=== PATIENT | male | born 1945 | race Caucasian/White ===

== ENCOUNTER 2021-01-15 07:38 | Outpatient (CLI) | payer MEDICARE, SELFPAY ==
--- NOTE | ~2021-01-15 | CT_ITS ---
EXAMINATION: CT abdomen w con INDICATION: Painless jaundice TECHNIQUE: Computed tomographic images of the abdomen were obtained after the administration of 100 c c of Omnipaque 350 intravenous contrast. The dose-length product (DLP) was 386.40 mGy-cm. Automated e xposure control and iterative reconstruction technique were employed. COMPARISON: 12/19/2009 FINDINGS: Minimal dependent atelectasis is present in the lung bases. The heart size is normal. There is an approximately 5.8 x 2.9 cm ill-defined, cystic and solid mass of the head of the pancreas whic h causes severe intrahepatic and extrahepatic biliary dilatation as well as distention of the gallbla dder. The mass abuts the superior mesenteric artery and vein and the left renal vein. There is atroph y of the body and tail of the pancreas with dilation of the pancreatic duct. No focal liver lesion is identified. The spleen and adrenal glands are normal. The kidneys are unremarkable. No pathologicall y enlarged abdominal nodes are identified. There is no free intraperitoneal gas or evidence of bowel obstruction. There is severe lumbar spondylosis. IMPRESSION: 1. Ill-defined mass of the pancreas causing intrahepatic and extrahepatic biliary dilatation as well as gallbladder distention, consistent with malignancy, likely adenocarcinoma. These findings were discussed with Dr. Cyril Degroot MD at 1035 hours on 01/15/2021 10:37 CDT . Reviewed, dictated and finalized at location A. IMPRESSION: 1. Ill-defined mass of the pancreas causing intrahepatic and extrahepatic bilia ry dilatation as well as gallbladder distention, consistent with malignancy, li maria elena adenocarcinoma. These findings were discussed with Dr. Cyril Degroot MD at 1035 hours on 01/15/2021 10:37 CDT.
[2021-01-15 13:16] LABS: Estimated Glomerular Filt Rate > 60
== END 2021-01-15 07:39 | disposition home or self-care (01) ==
PROVIDERS: PCP Family Medicine Adolescent Medicine; Visit Provider Family Medicine Adolescent Medicine
DX: R17 Unspecified jaundice (principal); K86.9 Disease of pancreas, unspecified
CPT/HCPCS: 74160; Q9967

== ENCOUNTER 2021-04-21 20:40 | Emergency (ER) | payer MEDICARE, SELFPAY ==
--- NOTE | ~2021-04-21 | XR_ITS ---
XR chest 1V portable DATE: 04/21/2021 22:41 INDICATION: Cough after starting chemotherapy. Pancreatic cancer. TECHNIQUE: Portable upright AP chest on 04/21/2021 at 2233 hours COMPARISON: 02/16/2019 CT chest 04/03/2016 2 view chest FINDINGS: There is chronic mild elevation of left diaphragm. There is left basilar atelectasis. The l ungs otherwise appear clear. Right Port-A-Cath catheter tip overlies the superior vena cava. Heart size appears normal. No hilar o r mediastinal enlargement. No pleural effusion or pneumothorax. IMPRESSION: Chronic mild elevation left diaphragm Left basilar atelectasis Right Port-A-Cath Reviewed, dictated and finalized at location A.
[2021-04-21 20:47] VITALS: BP 151/78; PULSE 106; RESP 20; TEMP 37.6; O2SAT 97
[2021-04-21 21:05] LABS: Basophils Percent Auto 0.2 % (0.2-1.2); Eosinophils Absolute Auto 0.1 K/mm3 (0-0.3); Eosinophils Percent Auto 1.1 % (0-4.4); Hematocrit 34.3 % (42.0-52.0); Hemoglobin 11.8 g/dL (14.0-18.0); Immature Granulocyte Absolute 0.04 K/mm3 (0.00-0.031); Immature Granulocyte Percent A 0.6 % (0-0.5); Lymphocytes Absolute Auto 0.78 K/mm3 (0.9-3.2); Mean Corpuscular HGB Conc 34.4 g/dl (32-36); Mean Corpuscular Hemoglobin 33.2 pg (26-34); Mean Corpuscular Volume 96.6 fl (80-100); Mean Platelet Volume 11.7 fl (7.4-10.4); Monocytes Absolute Auto 0.1 K/mm3 (0.1-0.6); Monocytes Percent Auto 0.9 % (2.6-8.5); Neutrophils Absolute Auto 5.5 K/mm3 (1.3-6.7); Neutrophils Percent Auto 85.2 % (45.5-73.1); Platelet Count Result 175 k/mm3 (150-375); Red Blood Count 3.55 M/mm3 (4.6-6.20); White Blood Count 6.5 K/mm3 (4.5-10.0)
[2021-04-21 21:15] LABS: Alanine Aminotransferase 64 U/L (4-50); Albumin Level 3.9 g/dL (3.5-5.1); Alkaline Phosphatase 48 U/L (38-126); Anion Gap 9 mmol/L (8-16); Aspartate Amino Transferase 62 U/L (17-59); Bilirubin,Total 0.5 mg/dL (0.2-1.3); Blood Urea Nitrogen 16 mg/dL (9-20); Calcium 8.8 mg/dL (8.4-10.2); Carbon Dioxide 24 mmol/L (22-30); Chloride 99 mmol/L (98-107); Estimated Glomerular Filt Rate > 60; Glucose 173 mg/dL (65-110); Potassium 4.1 mmol/L (3.4-5.0); Sodium 132 mmol/L (137-145)
[2021-04-21 21:16] LABS: Lactic Acid Reflex 1.5 mmol/L (0.7-2.1)
[2021-04-21 22:30] VITALS: BP 121/77; PULSE 106; RESP 16; TEMP 37.3; O2SAT 95
--- NOTE | 2021-04-21 22:45 | ED.FEVER ---
HPI - Fever General Chief Complaint: Fever Stated Complaint: fever, cancer pt Time Seen by Provider: 04/21/21 22:39 Source: patient Mode of arrival: ambulatory Limitations: no limitations History of Present Illness HPI Narrative: Patient is a 75-year-old male complaining of fever earlier this afternoon and has now resolved. Patient denies taking any Tylenol Motrin to reduce his fever. Patient afebrile upon arrival. Patient denies any headache, chest pain, shortness of breath, cough, congestion, abdominal pain, nausea, vomiting, diarrhea, or urinary symptoms. Patient states that I feel great . Patient does states that he has some cough but that is nothing new was told it was a side effect from his chemo drug. Patient currently is on chemotherapy due to pancreatic CA. Related Data Home Medications Medication Instructions Recorded Confirmed acetaminophen 500 mg tablet 500 mg PO Q6H PRN 06/20/20 04/10/21 apixaban 5 mg tablet 5 mg PO BID 06/20/20 04/10/21 nebivolol 10 mg tablet 10 mg PO DAILY 06/20/20 04/10/21 pravastatin 40 mg tablet 40 mg PO DAILY 06/20/20 04/10/21 tamsulosin 0.4 mg capsule 0.4 mg PO DAILY 06/20/20 04/10/21 carbidopa 25 mg-levodopa 100 mg 1 tablet PO tablet 04/10/21 04/10/21 tablet finasteride 5 mg tablet 5 mg PO DAILY tablet 04/10/21 04/10/21 Allergies Allergy/AdvReac Type Severity Reaction Status Date / Time No Known Allergies Allergy Verified 04/10/21 14:28 Review of Systems Review of Systems: All systems reviewed & are unremarkable except as noted in HPI and below Constitutional: Constitutional: Denies body ache(s), Denies chills, Denies excessive sweating, Denies fatigue, Denies headache(s), Denies lethargy, Denies malaise, Denies weakness and Denies weight loss Eyes: Eyes: Denies blurry vision, Denies change in vision and Denies loss of vision ENT: Denies dizziness, Denies ear discharge, Denies headache(s), Denies lip swelling, Denies epistaxis, Denies nasal congestion, Denies neck pain, Denies throat swelling and Denies tongue swelling Cardiovascular: Cardiovascular: Denies chest pain, Denies chest pain at rest, Denies chest pain with activity, Denies diaphoresis, Denies rapid heart rate, Denies edema, Denies irregular heart rhythm, Denies lightheadedness, Denies palpitations, Denies dyspnea and Denies dyspnea on exertion Respiratory: Respiratory: Denies chest congestion, Denies cough, Denies hemoptysis, Denies dyspnea and Denies dyspnea on exertion Gastrointestinal: Gastrointestinal: Denies abdominal pain, Denies melena, Denies hematochezia, Denies diarrhea, Denies nausea, Denies vomiting and Denies hematemesis Musculoskeletal: Musculoskeletal: Denies abnormal gait, Denies deformity, Denies joint swelling, Denies limited range of motion, Denies neck pain and Denies numbness Neurologic: Denies Abnormal speech present, Denies abnormal gait, Denies confusion, Denies dizziness, Denies headache(s), Denies focal weakness, Denies loss of vision, Denies numbness, Denies Other visual disturbances, Denies Sensory deficit (Neuro) and Denies weakness Psychiatric: Psychiatric: Denies confusion, Denies depression, Denies auditory hallucinations, Denies homicidal ideation and Denies suicidal ideation Endocrine: Endocrine: Denies cold intolerance, Denies excessive sweating, Denies fatigue, Denies heat intolerance and Denies palpitations Hematologic/Lymphatic: Hematologic/Lymphatic: Denies easy bleeding and Denies easy bruising Allergic/Immunologic: Allergic/Immunologic: Denies lip swelling, Denies throat swelling and Denies tongue swelling PMFSH Past Medical History Medical History Arthritis COPD (chronic obstructive pulmonary disease) Diastolic dysfunction Erectile dysfunction H/O: CVA (cerebrovascular accident) HLD (hyperlipidemia) HTN (hypertension) Lung nodule LISANDRA on CPAP Osteoarthritis Pelvic fracture Rhinitis Surgical History Surgical H
[2021-04-21 23:14] LABS: Add Urine Microscopic? NO; Appearance Urine Clear (Clear); Bilirubin Urine Negative (Negative); Blood Urine Negative (Negative); Color Urine Yellow (Yellow); Glucose Urine UA Negative (Negative); Ketones Urine Negative (Negative); Leukocyte Esterase Ur Negative LEU/UL (Negative); Nitrate Urine Negative (Negative); Protein Urine Negative (Negative); Specific Grav Ur 1.023 (1.001-1.035); Urobilinogen Urine Negative mg/dL (<2.0)
[2021-04-21] MEDS: LACTATED RINGERS 1,000 ML 999 ML IV CONT (23:24)
[2021-04-21 23:25] VITALS: BP 109/71; PULSE 101; RESP 18; O2SAT 95
--- NOTE | 2021-04-22 00:08 | PC.NURSE ---
Pt to receive 500 ml of Lactated Ringers per ERP VRBO.
[2021-04-22 00:11] VITALS: BP 127/67; PULSE 89; RESP 16; O2SAT 95
[2021-04-22 01:32] VITALS: BP 126/73; PULSE 98; RESP 18; O2SAT 96
== END 2021-04-22 01:26 | disposition home or self-care (01) ==
PROVIDERS: Emergency Medicine; Emergency Provider Emergency Medicine; PCP Family Medicine Adolescent Medicine
DX: R50.9 Fever, unspecified (principal); C25.9 Malignant neoplasm of pancreas, unspecified; J44.9 Chronic obstructive pulmonary disease, unspecified; E78.5 Hyperlipidemia, unspecified; I10 Essential (primary) hypertension; G47.33 Obstructive sleep apnea (adult) (pediatric); M19.90 Unspecified osteoarthritis, unspecified site; Z86.73 Personal history of transient ischemic attack (TIA), and cerebral infarction without residual deficits; Z95.5 Presence of coronary angioplasty implant and graft; Z90.79 Acquired absence of other genital organ(s); Z79.01 Long term (current) use of anticoagulants; Z79.899 Other long term (current) drug therapy
CPT/HCPCS: 36415; 71045; 80053; 81003; 83605; 85025; 87040; 96361; 96365; 99284; J0692; J7120

== ENCOUNTER 2021-04-27 17:27 | Emergency (ER) | payer MEDICARE, SELFPAY ==
--- NOTE | ~2021-04-27 | XR_ITS ---
EXAMINATION: XR chest 2V DATE: 04/27/2021 18:09 INDICATION: Cough. TECHNIQUE: Frontal and lateral views of the chest were obtained. COMPARISON: Chest single view 04/13/2021, CT abdomen 01/15/2021 FINDINGS: There is mild atelectasis in left lower lung zone. No pleural effusion or pneumothorax. The heart size is normal. There is an interatrial closure device in the heart. There is a right internal jugular port with tip in superior vena cava. An internal biliary stent is noted. IMPRESSION: 1. Mild atelectasis in left lower lung zone. Reviewed, dictated and finalized at location A.
--- NOTE | 2021-04-27 17:33 | ED.URI ---
HPI - URI/Sore Throat General Chief Complaint: Upper Respiratory Infection Stated Complaint: cough Time Seen by Provider: 04/27/21 17:34 Source: patient Limitations: no limitations History of Present Illness HPI Narrative: Maurizio Bear is 75 yo male with a PMH of pancreatic cancer, HTN, high cholesterol, chronic anticoagulation, Parkinson's disease, COPD, who [facility] with complaint of a cough the last 3 weeks . He was seen last week in the ER same and having fever and was had a chest x-ray. Chest x-ray negative started on Augmentin last week cough has not gone away. Oncologist told patient that cough is from his chemotherapy states his son Jhonatan cough worsened as the day progresses Related Data Home Medications Medication Instructions Recorded Confirmed acetaminophen 500 mg tablet 500 mg PO Q6H PRN 06/20/20 04/10/21 apixaban 5 mg tablet 5 mg PO BID 06/20/20 04/10/21 nebivolol 10 mg tablet 10 mg PO DAILY 06/20/20 04/10/21 pravastatin 40 mg tablet 40 mg PO DAILY 06/20/20 04/10/21 tamsulosin 0.4 mg capsule 0.4 mg PO DAILY 06/20/20 04/10/21 carbidopa 25 mg-levodopa 100 mg 1 tablet PO tablet 04/10/21 04/10/21 tablet finasteride 5 mg tablet 5 mg PO DAILY tablet 04/10/21 04/10/21 Allergies Allergy/AdvReac Type Severity Reaction Status Date / Time No Known Allergies Allergy Verified 04/10/21 14:28 Review of Systems Review of Systems: CONSTITUTIONAL: Has fever, chills, sweats. EYES: Denies visual changes, redness, discharge. ENT: Denies rhinorrhea, congestion, sore throat, otalgia. CARDIOVASCULAR: Denies chest pain, palpitations, edema. RESPIRATORY: Denies dyspnea, wheezing, has cough GASTROINTESTINAL: Denies abdominal pain, nausea, vomiting, diarrhea. GENITOURINARY: Denies dysuria, hematuria, abnormal discharge SKIN: Denies rash or itching. NEUROLOGIC: Denies numbness, or focal weakness. PSYCHIATRIC: Denies anxiety or depression. [facility] Past Medical History Medical History Arthritis COPD (chronic obstructive pulmonary disease) Diastolic dysfunction Erectile dysfunction H/O: CVA (cerebrovascular accident) HLD (hyperlipidemia) HTN (hypertension) Lung nodule LISANDRA on CPAP Osteoarthritis Pancreatic cancer Pelvic fracture Rhinitis Surgical History Surgical History H/O heart artery stent H/O inguinal hernia repair H/O prostatectomy History of appendectomy History of cardiac cath History of coronary angioplasty Family History Family History Father Acute myocardial infarction, Onset Age: 59 Grandparent Cerebrovascular accident Mother Family history of malignant neoplasm of breast in first degree relative, Onset Age: 65 Social History Social History Smoking status: Never smoker Alcohol intake: current Comments At time of signature, I agree with nursing past medical, surgical, social and family history. There is no relevant family history pertinent to the presenting complaint. Exam Narrative: GENERAL: This is a elderly well-developed patient, in moderate distress. Patient is febrile, unable to stand alone, low-grade fever fever HEAD: normocephalic, atraumatic. EYESSclera clear/white. Vision is grossly intact. EARS: External ears normal, auditory canals clear and without drainage, TMs normal without perforation. Hearing grossly intact. NOSE: External nose normal without nasal discharge, nares without redness, no rhinorrhea. THROAT: Mucous membranes moist, he has poorly controlled dry cough NECK: Neck supple, non-tender CARDIOVASCULAR: Regular rate and rhythm without murmurs, gallops, or rubs. RESPIRATORY: Coarse to auscultation. Respiratory rate rapid breath sounds equal bilaterally. No wheezes, rales, or rhonchi. [place]
[2021-04-27 17:46] VITALS: BP 145/93; PULSE 104; RESP 22; TEMP 37.8; O2SAT 97
[2021-04-28 21:00] LABS: SARS-CoV-2 RNA PCR Negative
== END 2021-04-27 18:48 | disposition home or self-care (01) ==
PROVIDERS: Emergency Provider Nurse Practitioner; PCP Family Medicine Adolescent Medicine
DX: R05 Cough (principal); C25.9 Malignant neoplasm of pancreas, unspecified; Z20.828 Contact with and (suspected) exposure to other viral communicable diseases; I10 Essential (primary) hypertension; G20 Parkinson's disease; J44.9 Chronic obstructive pulmonary disease, unspecified; Z86.73 Personal history of transient ischemic attack (TIA), and cerebral infarction without residual deficits; Z79.01 Long term (current) use of anticoagulants
CPT/HCPCS: 71046; 81003; 87426; 99213; C9803; G0463; U0003; U0005

== ENCOUNTER 2021-06-23 20:22 | Inpatient (IN) | payer MEDICARE, SELFPAY ==
[2021-06-23] VITALS (7 sets, daily range): BP systolic 110–140; BP diastolic 64–76; PULSE 109–139; RESP 22–33; TEMP 38; O2SAT 90–100
--- NOTE | ~2021-06-23 | US_ITS ---
EXAMINATION: US abdomen limited EXAM DATE: 06/24/2021 11:06 INDICATION: Pancreatic cancer, inc lft's, Elevated liver function tests. TECHNIQUE: Multiple grayscale and Doppler images of the abdomen right upper quadrant were obtained (b y a technologist who performed the scan) and subsequently reviewed. There is no prior study for trino barrera. FINDINGS: The pancreatic head and body are normal in appearance. The pancreatic tail is not visualized. The l iver has normal echogenicity and contour. There are no focal liver lesions identified. There is no evidence of intrahepatic biliary duct dilation. Portal venous flow was seen in the hepatopedal, nor mal direction and has normal Doppler waveform. No right-sided hydronephrosis. Common bile duct measures 8 mm, which is normal for age. The gallbladder is moderately distended with mildly thickened wall measuring 3-4 mm. No cholelithiasis. No pericholecystic fluid. Technologist jess rforming exam reports patient did not demonstrate sonographic Aguero's sign. Please note that this s ign is less reliable in patients who have received pain medication. IMPRESSION: 1. Moderately distended gallbladder with mild wall thickening, could be reactive given absence of ch olelithiasis and sonographic Aguero sign. Reviewed, dictated and finalized at location A. IMPRESSION: 1. Moderately distended gallbladder with mild wall thickening, could be reacti ve given absence of cholelithiasis and sonographic Aguero sign.
--- NOTE | ~2021-06-23 | CT_ITS ---
EXAMINATION: CT chest abdomen pelvis wo con DATE: 06/26/2021 05:29 INDICATION: Escherichia coli sepsis TECHNIQUE: Transaxial computed tomographic images of the chest, abdomen, and pelvis were obtained. Th e dose-length product (DLP) was 1003.34 mGy-cm. Automated exposure control and iterative reconstructi on technique were employed. COMPARISON: 01/15/2021 FINDINGS: CHEST CT: There are small pleural effusions. Smooth interlobular septal thickening is noted with some minimal g roundglass opacities. There are small, stable bilateral pulmonary nodules. Clustered nodules are pres ent in the right lower lobe which may be infectious or inflammatory. There is dependent atelectasis. No pneumothorax is identified. A right internal jugular Port-A-Cath ends with its tip in the distal s uperior vena cava. An ASD closure device is noted. There are coronary artery stents. The heart size i s normal. ABDOMEN/PELVIS CT: There has been interval placement a stent in the common bile duct. The previously described irregular mass in the head of the pancreas is not well demonstrated in the absence of intravenous contrast. Th ere is atrophy of the pancreas with enlargement of the pancreatic duct. A small amount of pneumobilia is present, most likely related to stent insertion. Within the limitations of noncontrast examinatio n, the liver, spleen, gallbladder, and adrenal glands are normal. The kidneys are unremarkable. There is calcified atherosclerosis of the aorta and many of the other arteries. No pathologically enlarged abdominal or pelvic lymph nodes are identified. There is no free intraperitoneal gas or evidence of bowel obstruction. The bladder is decompressed by Tobar catheter. Wall thickening of the urinary blad jae may be due to decompression. There are healed fractures of the bilateral inferior pubic rami. The re is severe lumbar spondylosis. IMPRESSION: 1. Small pleural effusions with atelectasis of the lower lobes. 2. Mild pulmonary edema. 3. Interval placement of a stent in the common bile duct, pancreatic atrophy, ill-defined mass in the head of the pancreas, and pancreatic ductal dilatation, all consistent with treatment for, and findi ngs of, pancreatic cancer. Reviewed, dictated and finalized at location B. IMPRESSION: 1. Small pleural effusions with atelectasis of the lower lobes. 2. Mild pulmonary edema. 3. Interval placement of a stent in the common bile duct, pancreatic atrophy, i ll-defined mass in the head of the pancreas, and pancreatic ductal dilatation, all consistent with treatment for, and findings of, pancreatic cancer.
--- NOTE | ~2021-06-23 | XR_ITS ---
XR chest 2V 06/23/2021 20:51 Indication: Shortness of breath. COPD. Hypertension. Procedure: AP and lateral views of the chest Comparison: 04/27/2021 Findings: There is bilateral airspace disease, left greater than right. Elevated left diaphragm. Port acatheter tip in the SVC. No pneumothorax. Impression: 1: Developing bilateral airspace disease, left greater than right, compatible with pneumonia. Reviewed, dictated and finalized at location A. Impression: 1: Developing bilateral airspace disease, left greater than right, compatible w ith pneumonia.
--- NOTE | ~2021-06-23 | XR_ITS ---
EXAMINATION: XR chest 1V portable INDICATION: Congestive heart failure and cough TECHNIQUE: Portable AP chest at 0835 hours COMPARISON: 06/24/2021 FINDINGS: A right internal jugular Port-A-Cath ends with its tip in the distal superior vena cava. Pa tchy bilateral opacities persist but have improved. Atelectasis of the lung bases has also improved. The cardiomediastinal silhouette is normal. There is no pleural effusion or pneumothorax IMPRESSION: 1. Improving bilateral opacities, consistent with resolving pneumonia and/or pulmonary edema. 2. Decreased left basilar atelectasis. Reviewed, dictated and finalized at location B. IMPRESSION: 1. Improving bilateral opacities, consistent with resolving pneumonia and/or pu lmonary edema. 2. Decreased left basilar atelectasis.
--- NOTE | ~2021-06-23 | XR_ITS ---
EXAMINATION: XR chest 1V portable EXAM DATE: 06/24/2021 00:41 INDICATION: Shortness of breath. TECHNIQUE: Portable AP frontal chest x-ray was obtained. Comparison is made to prior examination from 06/23. FINDINGS: Progression of now moderate amount of right-sided perihilar pneumonia or edema and less star unt of left basilar more linear airspace disease at least partly atelectasis. Cardiomediastinal silho uette is normal. There is no pneumothorax suspected. There are no pleural effusions. Right-sided inje ctable portacatheter. Unremarkable upper abdominal bowel gas pattern. IMPRESSION: 1. Development of moderate right perihilar pneumonia or edema. 2. Less left basilar airspace disease. Reviewed, dictated and finalized at location A.
--- NOTE | ~2021-06-23 | US_ITS ---
EXAMINATION: US venous doppler LE EXAM DATE: 06/24/2021 11:05 INDICATION: Lower extremity edema bilaterally. TECHNIQUE: Multiple grayscale, color flow and Doppler images of the lower extremity deep venous syste ms bilaterally were obtained and reviewed. There is no prior study for comparison. FINDINGS: Right side: The right common femoral, femoral and profunda veins demonstrate normal color flow, respi ratory variation, augmentation and compressibility. Compressibility, color flow confirmed within the right popliteal, posterior tibial, peroneal, and greater saphenous veins. Left side: The left common femoral, femoral and profunda veins demonstrate normal color flow, respira tory variation, augmentation and compressibility. Compressibility, color flow confirmed within the l eft popliteal, posterior tibial, peroneal, and greater saphenous veins. IMPRESSION: 1. No lower extremity deep venous thrombosis bilaterally. Reviewed, dictated and finalized at location A.
--- NOTE | 2021-06-23 20:30 | ECG_ITS ---
Measurements Intervals [place] Rate: 111 P: 28 CT: 151 QRS: -2 QRSD: 90 T: 17 QT: 306 QTc: 417 Interpretive Statements SINUS TACHYCARDIA ATRIAL PREMATURE COMPLEXES BASELINE ARTIFACT- I, II, III, AVR, AVF, V3-V6 ABNORMAL ECG Electronically Signed On 06-24-2021 7:31:51 CDT by Nayan Hansen D.O.
[2021-06-23 20:43] LABS: Basophils Percent Auto 0.5 % (0.2-1.2); Hematocrit 27.2 % (42.0-52.0); Hemoglobin 8.9 g/dL (14.0-18.0); Immature Granulocyte Absolute 0.12 K/mm3 (0.00-0.031); Immature Granulocyte Percent A 6.3 % (0-0.5); Lymphocytes Absolute Auto 0.63 K/mm3 (0.9-3.2); Lymphocytes Percent Auto 32.8 % (18.3-44.2); Mean Corpuscular HGB Conc 32.7 g/dl (32-36); Mean Corpuscular Hemoglobin 31.4 pg (26-34); Mean Corpuscular Volume 96.1 fl (80-100); Mean Platelet Volume 11.1 fl (7.4-10.4); Monocytes Absolute Auto 0.1 K/mm3 (0.1-0.6); Monocytes Percent Auto 3.1 % (2.6-8.5); Neutrophils Absolute Auto 1.1 K/mm3 (1.3-6.7); Neutrophils Percent Auto 56.3 % (45.5-73.1); Nucleated Red Blood Cells Absolute Auto 0.1 K/mm3 (0.0-0.012); Nucleated Red Blood Cells Perc 3.6 % (0.0-0.2); Platelet Count Result 227 k/mm3 (150-375); Red Blood Count 2.83 M/mm3 (4.6-6.20); Red Cell Distribution Width 17.7 % (11.5-14.5)
[2021-06-23 20:48] LABS: White Blood Count 1.9 K/mm3 (4.5-10.0)
[2021-06-23 20:55] LABS: Anion Gap 9 mmol/L (8-16); Blood Urea Nitrogen 11 mg/dL (9-20); Calcium 8.4 mg/dL (8.4-10.2); Carbon Dioxide 24 mmol/L (22-30); Chloride 102 mmol/L (98-107); Estimated CRCL calculation 104 ml/min; Estimated Glomerular Filt Rate > 60; Glucose 161 mg/dL (65-110); Potassium 3.8 mmol/L (3.4-5.0); Sodium 135 mmol/L (137-145)
[2021-06-23 21:15] LABS: Lactic Acid Reflex 2.3 mmol/L (0.7-2.1)
[2021-06-23 21:18] LABS: Alanine Aminotransferase 101 U/L (4-50); Albumin Level 3.3 g/dL (3.5-5.1); Alkaline Phosphatase 317 U/L (38-126); Aspartate Amino Transferase 190 U/L (17-59); Bilirubin,Total 1.3 mg/dL (0.2-1.3); Lipase 11 U/L (23-300)
--- NOTE | 2021-06-23 21:58 | PM.IMHP ---
H&P: HPI History of Present Illness Date/Time: 06/23/21 21:58 Chief Complaint: Generalized weakness. Narrative: This is a 75-year-old man with past medical history significant for Parkinson's disease, type 2 diabetes mellitus, COPD/emphysema, diastolic heart failure, stroke, dyslipidemia, obstructive sleep apnea on CPAP at nighttime, who was just recently diagnosed with pancreatic cancer he has been undergoing chemotherapy last was a roughly 10 days ago after this time around he has been having nausea, vomiting ,decreased appetite, generalized weakness, chills, has not been able to take his Parkinson's medication and has been feeling very stiff. Preliminary workup was significant for a chest x-ray with lung infiltrates chemistry panel showed elevated liver enzymes. Decision was made to admit the patient for further management treatment and evaluation. Review of Systems Review of Systems: Poor appetite nausea vomiting generalized weakness cough shortness of breath Constitutional: Constitutional: Reports chills, Reports fatigue, Denies fever(s), Reports lethargy, Reports malaise, Denies night sweats, Reports poor appetite and Reports weakness Eyes: Eyes: Denies change in vision ENT: Denies dysphagia, Denies vertigo, Denies dizziness, Denies nasal congestion, Denies nasal discharge, Denies nasal obstruction and Denies odynophagia Cardiovascular: Cardiovascular: Denies irregular heart rhythm, Denies lightheadedness, Denies radiating jaw, neck or arm pain, Denies palpitations, Denies dyspnea, Denies dyspnea on exertion and Denies orthopnea Respiratory: Respiratory: Reports cough and Reports dyspnea Gastrointestinal: Gastrointestinal: Denies abdominal pain, Reports diarrhea, Reports nausea and Reports vomiting Genitourinary: Genitourinary: Denies dysuria and Denies flank pain Musculoskeletal: Musculoskeletal: Denies arthralgias and Denies joint swelling Integumentary/Breasts: Skin/Breast: Denies rash Neurologic: Denies focal weakness and Denies Sensory deficit (Neuro) Comments: Stiffness Psychiatric: Psychiatric: Reports no additional psychiatric complaints and Reports as per HPI Endocrine: Endocrine: Reports no additional endocrine complaints and Reports as per HPI Hematologic/Lymphatic: Hematologic/Lymphatic: Reports no additional hematologic/lymphatic complaints and Reports as per HPI Allergic/Immunologic: Allergic/Immunologic: Reports no additional allergic/immunologic complaints and Reports as per HPI [facility] Past Medical History Medical History (Updated 06/24/21 @ 02:56 by Marty Lin MD) Arthritis COPD (chronic obstructive pulmonary disease) Diastolic dysfunction Erectile dysfunction H/O: CVA (cerebrovascular accident) HLD (hyperlipidemia) HTN (hypertension) Lung nodule LISANDRA on CPAP Osteoarthritis Pancreatic cancer Pelvic fracture Rhinitis Surgical History Surgical History H/O heart artery stent H/O inguinal hernia repair H/O prostatectomy History of appendectomy History of cardiac cath History of coronary angioplasty Family History Family History Father Acute myocardial infarction, Onset Age: 59 Grandparent Cerebrovascular accident Mother Family history of malignant neoplasm of breast in first degree relative, Onset Age: 65 Social History Social History Smoking status: Former smoker Alcohol intake: never Substance use: never Substance use type: does not use Spiritual care concerns: No Meds Home Medications and Allergies Home Medications Medication Instructions Recorded Confirmed Type apixaban 5 mg tablet 5 mg PO BID 06/20/20 06/24/21 History nebivolol 10 mg tablet 10 mg PO DAILY 06/20/20 06/24/21 History pravastatin 40 mg tablet 40 mg PO DAILY 06/20/20 06/24/21 History tamsulosin 0.4 m
[2021-06-23] MEDS: ONDANSETRON INJ 4 MG/2 ML VIAL IV PUSH (22:09)
--- NOTE | 2021-06-23 22:16 | ED.SOB ---
HPI - SOB/Dyspnea General Chief Complaint: Shortness of Breath/Dyspnea Stated Complaint: dsypnea, N/V Time Seen by Provider: 06/23/21 20:42 Source: patient, family and EMS Mode of arrival: EMS Limitations: physical limitation and clinical condition History of Present Illness HPI Narrative: 75-year-old male History of COPD, Parkinson's type symptoms and of pancreatic cancer which he is currently receiving chemo for through [facility] most recently 10 days ago Here because of shortness of breath He reports that he started getting more short of breath yesterday and increased today Not particularly associated with exertion or position and has no chest pain He has had a bit of a cough, was not aware that he had a fever EMS was called and noted him to have a low O2 sat of 88% which improved with oxygen Right before leaving he started getting nauseated and vomited quite a bit in the ambulance, no hematemesis reported Related Data Home Medications Medication Instructions Recorded Confirmed apixaban 5 mg tablet 5 mg PO BID 06/20/20 04/10/21 nebivolol 10 mg tablet 10 mg PO DAILY 06/20/20 04/10/21 pravastatin 40 mg tablet 40 mg PO DAILY 06/20/20 04/10/21 tamsulosin 0.4 mg capsule 0.4 mg PO DAILY 06/20/20 04/10/21 carbidopa 25 mg-levodopa 100 mg 1 tablet PO tablet 04/10/21 04/10/21 tablet finasteride 5 mg tablet 5 mg PO DAILY tablet 04/10/21 04/10/21 cholecalciferol (vitamin D3) 25 mcg PO DAILY 06/23/21 glucagon [Gvoke HypoPen 2-Pack] 1 mg SUBCUT ONCE PRN 06/23/21 insulin aspart U-100 [Novolog 20 unit SUBCUT TID 06/23/21 Flexpen U-100 Insulin] insulin degludec [Tresiba SUBCUT 06/23/21 FlexTouch U-100] ondansetron HCl 06/23/21 tadalafil mg 06/23/21 Allergies Allergy/AdvReac Type Severity Reaction Status Date / Time No Known Allergies Allergy Verified 06/23/21 20:28 Review of Systems Review of Systems: All systems reviewed & are unremarkable except as noted in HPI and below Constitutional: Constitutional: Reports no additional constitutional complaints, Reports chills, Reports fatigue, Denies fever(s), Denies headache(s) and Reports weakness Eyes: Eyes: Reports no additional eye complaints and Denies change in vision ENT: Denies headache(s) and Denies sore throat Cardiovascular: Cardiovascular: Denies chest pain and Denies dyspnea Respiratory: Respiratory: Reports chest congestion, Reports cough, Reports dyspnea and Reports wheezing Gastrointestinal: Gastrointestinal: Denies abdominal pain, Reports diarrhea, Reports nausea and Reports vomiting Genitourinary: Genitourinary: Denies dysuria and Denies urinary frequency Musculoskeletal: Musculoskeletal: Reports back pain, Reports myalgias, Denies deformity, Denies arthralgias, Denies joint swelling and Denies numbness Integumentary/Breasts: Skin/Breast: Denies rash and Denies wounds Neurologic: Denies headache(s), Denies focal weakness and Denies numbness Psychiatric: Psychiatric: Reports no additional psychiatric complaints Endocrine: Endocrine: Reports no additional endocrine complaints Hematologic/Lymphatic: Hematologic/Lymphatic: Reports no additional hematologic/lymphatic complaints Allergic/Immunologic: Allergic/Immunologic: Reports no additional allergic/immunologic complaints [facility] Past Medical History Medical History Arthritis COPD (chronic obstructive pulmonary disease) Diastolic dysfunction Erectile dysfunction H/O: CVA (cerebrovascular accident) HLD (hyperlipidemia) HTN (hypertension) Lung nodule LISANDRA on CPAP Osteoarthritis Pancreatic cancer Pelvic fracture Rhinitis Surgical History Surgical History H/O heart artery stent H/O inguinal hernia repair H/O prostatectomy History of appendectomy History of cardiac cath History of coronary angioplasty Family History Family History (Reviewed 06/23/21 @ 22:22 by Isaiah Carranza,
[2021-06-23] MEDS: LACTATED RINGERS 1,000 ML 999 ML IV CONT ×2 (22:29→22:31)
[2021-06-23] MEDS: ALBUTEROL SULFATE NEB 2.5 MG/0.5 ML INH 5 MG INHALATION (22:42)
[2021-06-24] VITALS (36 sets, daily range): BP systolic 90–134; BP diastolic 47–75; PULSE 77–134; RESP 18–48; TEMP 36–38.9; O2SAT 75–100; BMI 29.4
[2021-06-24 00:01] LABS: Reflex Lactic Acid Yes or No Add Lactic
--- NOTE | 2021-06-24 00:10 | ADMGEN ---
This patient, Maurizio Casey, was admitted to Medical Room 247-. Patient/family oriented to hospital policies and general routines including ID bracelet, bed and alarms, visiting hours, pain management, procedures, bathroom and other care routines, personal items, smoking policy, room service/diet, and visiting hours. Information on how to activate the Rapid Response Team has been discussed. Patient/Family are encouraged to report perceived risks to care and to ask questions if they do not understand what they are told or what they should do.
--- NOTE | 2021-06-24 00:20 | PC.NURSE ---
received patient from the ER via stretcher. Patient is Short of breath at rest, unable to speak and using accessory muscles. HR in the 130's, pt O2 sats in the 70's on 2L O2, respirations 40. Patients lungs sound very coarse. Rapid response called
--- NOTE | 2021-06-24 00:31 | ECG_ITS ---
Measurements Intervals [place] Rate: 130 P: 57 MS: 155 QRS: 6 QRSD: 90 T: 30 QT: 281 QTc: 413 Interpretive Statements SINUS TACHYCARDIA VENTRICULAR PREMATURE COMPLEX BORDERLINE ST ABNORMALITY- ANTEROLATERAL LEADS BASELINE ARTIFACT- II, III, AVL, V2-V6 ABNORMAL ECG Electronically Signed On 06-29-2021 20:23:01 CDT by Nayan Hansen D.O.
[2021-06-24 00:36] LABS: Alveolar/Arterial O2 Gradient 535.8 mmHg; Base Excess ABG -2.3 mEq/l (+/-2.0); Carboxyhemoglobin 0.3 % THb (0-2.0); Fractional Inspired Oxygen 95 %; HCO3 ABG 22.4 mEq/l (22.0-26.0); Methemoglobin ABG 0.2 %THb (0-1.5); Oxygen Saturation ABG 97.7 % (95.0-100.0); Oxyhemoglobin 95.9 % THb (90.0-100.0); PCO2 ABG 38.1 mmHg (35.0-45.0); PO2 FiO2 Ratio Arterial Blood 1.08 %; Reduced Hemoglobin 3.6 %THb (0-5.0); Total Hemoglobin 9.5 g/dL (12.0-18.0); pH ABG 7.388 (7.350-7.450)
[2021-06-24 00:37] LABS: Device NON-REBREATHER MASK; Modified Allen's Test Pass; Site Drawn LEFT RADIAL
[2021-06-24] MEDS: FUROSEMIDE INJ 40 MG/4 ML VIAL IV PUSH (00:41)
[2021-06-24] MEDS: MORPHINE SULFATE (*CRX) 2 MG/ML INJ IV PUSH (00:41)
[2021-06-24] MEDS: ACETAMINOPHEN 325 MG TABLET 650 MG PO (00:42)
[2021-06-24 01:15] LABS: Hematocrit 26.2 % (42.0-52.0); Hemoglobin 8.5 g/dL (14.0-18.0); Mean Corpuscular HGB Conc 32.4 g/dl (32-36); Mean Corpuscular Hemoglobin 30.9 pg (26-34); Mean Corpuscular Volume 95.3 fl (80-100); Mean Platelet Volume 11.2 fl (7.4-10.4); Platelet Count Result 236 k/mm3 (150-375); Red Blood Count 2.75 M/mm3 (4.6-6.20); Red Cell Distribution Width 17.7 % (11.5-14.5); White Blood Count 4.1 K/mm3 (4.5-10.0)
[2021-06-24 01:18] LABS: Alanine Aminotransferase 136 U/L (4-50); Albumin Level 3.1 g/dL (3.5-5.1); Alkaline Phosphatase 343 U/L (38-126); Anion Gap 9 mmol/L (8-16); Aspartate Amino Transferase 294 U/L (17-59); Bilirubin,Total 1.8 mg/dL (0.2-1.3); Blood Urea Nitrogen 12 mg/dL (9-20); Carbon Dioxide 25 mmol/L (22-30); Chloride 100 mmol/L (98-107); Estimated CRCL calculation 71 ml/min; Estimated Glomerular Filt Rate > 60; Glucose 229 mg/dL (65-110); Phosphorus 2.5 mg/dL (2.5-4.5); Potassium 3.5 mmol/L (3.4-5.0); Sodium 134 mmol/L (137-145)
[2021-06-24 01:19] LABS: Lactic Acid 3.3 mmol/L (0.7-2.1)
[2021-06-24 01:27] LABS: NT Pro B Type Natriuretic Pept 1170 pg/mL (5-100)
[2021-06-24] MEDS: methylPREDNISolone SOD SUCC 125 MG VIAL IV PUSH (03:18)
[2021-06-24 05:20] LABS: Basophils Percent Auto 0.5 % (0.2-1.2); Hematocrit 25.8 % (42.0-52.0); Hemoglobin 8.2 g/dL (14.0-18.0); Immature Granulocyte Absolute 0.05 K/mm3 (0.00-0.031); Immature Granulocyte Percent A 0.9 % (0-0.5); Lymphocytes Percent Auto 10.8 % (18.3-44.2); Mean Corpuscular HGB Conc 31.8 g/dl (32-36); Mean Corpuscular Hemoglobin 31.2 pg (26-34); Mean Corpuscular Volume 98.1 fl (80-100); Mean Platelet Volume 11.3 fl (7.4-10.4); Monocytes Absolute Auto 0.8 K/mm3 (0.1-0.6); Monocytes Percent Auto 14.5 % (2.6-8.5); Neutrophils Absolute Auto 4.1 K/mm3 (1.3-6.7); Neutrophils Percent Auto 73.3 % (45.5-73.1); Nucleated Red Blood Cells Absolute Auto 0.1 K/mm3 (0.0-0.012); Nucleated Red Blood Cells Perc 1.1 % (0.0-0.2); Platelet Count Result 220 k/mm3 (150-375); Red Blood Count 2.63 M/mm3 (4.6-6.20); Red Cell Distribution Width 17.9 % (11.5-14.5); White Blood Count 5.6 K/mm3 (4.5-10.0)
[2021-06-24 05:32] LABS: Alanine Aminotransferase 158 U/L (4-50); Alkaline Phosphatase 307 U/L (38-126); Anion Gap 8 mmol/L (8-16); Aspartate Amino Transferase 279 U/L (17-59); Bilirubin,Total 2.3 mg/dL (0.2-1.3); Blood Urea Nitrogen 14 mg/dL (9-20); Calcium 7.9 mg/dL (8.4-10.2); Carbon Dioxide 24 mmol/L (22-30); Chloride 99 mmol/L (98-107); Estimated CRCL calculation 63 ml/min; Estimated Glomerular Filt Rate > 60; Glucose 281 mg/dL (65-110); Sodium 131 mmol/L (137-145)
[2021-06-24 05:36] LABS: Lipase < 10 U/L (23-300)
[2021-06-24] MEDS: INSULIN ASPART (*BKC) 100 UNITS/ML SUB-Q ×2 (08:16→17:36)
[2021-06-24 08:30] LABS: Glucose Point of Care 252 mg/dl (65-105)
[2021-06-24 08:57] LABS: Glucose Point of Care 258 mg/dl (65-105)
[2021-06-24] MEDS: ALBUTEROL SULFATE NEB 2.5 MG/0.5 ML INH 5 MG INHALATION (09:26)
[2021-06-24] MEDS: IPRATROPIUM BR 0.02% INH SOLN 0.5 MG/2.5 ML VIAL INHALATION (09:26)
[2021-06-24 09:28] LABS: Immature Reticulocyte Fraction 28.5 % (3.0-15.9); Reticulocyte Hemoglobin Conten 29.3 pg (28.2-35.7); Reticulocyte Percent 5.58 % (0.7-4.3); Reticulocytes Absolute 0.15 B/L (32.2-175.7)
[2021-06-24 09:40] LABS: Lactic Acid Reflex 3.6 mmol/L (0.7-2.1)
[2021-06-24 09:43] LABS: CRP 5.9 mg/dL (<1.0); Lactate Dehydrogenase 1035 U/L (313-618)
[2021-06-24 09:45] LABS: Add Urine Microscopic? YES; Appearance Urine Cloudy (Clear); Bilirubin Urine Negative (Negative); Blood Urine Negative (Negative); Color Urine Amber (Yellow); Glucose Urine UA 1+ mg/dL (Negative); Ketones Urine Negative (Negative); Leukocyte Esterase Ur Trace LEU/UL (NEGATIVE); Mucus Urine Rare /lpf; Nitrate Urine Negative (Negative); Protein Urine Negative (Negative); RBC Urine 0-2 /hpf (0-2); Specific Grav Ur 1.013 (1.001-1.035); Squamous Epithelial Cell Urine Rare /hpf (Few); Urobilinogen Urine Negative mg/dL (<2.0); WBC Urine 0-3 /hpf (0-3)
--- NOTE | 2021-06-24 09:59 | ECG_ITS ---
Measurements Intervals [place] Rate: 96 P: 64 AL: 155 QRS: 26 QRSD: 94 T: 27 QT: 353 QTc: 446 Interpretive Statements SINUS RHYTHM ATRIAL PREMATURE COMPLEXES BORDERLINE T WAVE ABNORMALITY- INFERIOR LEADS BASELINE ARTIFACT- AVL, AVF BORDERLINE ECG Electronically Signed On 06-24-2021 14:59:01 CDT by Nayan Hansen D.O.
[2021-06-24 10:10] LABS: Erythrocyte Sedimentation Rate 68 mm/hr (0-20)
--- NOTE | 2021-06-24 10:21 | PM.CNCAR ---
Assessment and Plan Assessment and plan (1) Type 2 TN (myocardial infarction): Code(s): I21.A1 - Myocardial infarction type 2 Status: Acute Assessment and Plan: Elevated troponin in a patient with a history of CAD. No anginal symptoms. Perhaps some slight ST depression in V5 and V6 on the EKG from early this morning when he was hypoxic but otherwise no ischemic changes. Patient was very hypoxic last night which may have provoked this troponin spill. Acute coronary syndrome is not excluded but not the likely etiology. His chemotherapeutic agent, Abraxane, is also known to cause some myocardial ischemia and other issues. Patient lis stable now. Follow troponins, check Echo, add ASA. Change Eliquis to heparin as Eliquis is hepatically metabolized (and in case a coronary intervention ends up needing to be done) if PT/INR are reasonable (should be elevated some 2nd Eliquis, but if very high due to acute liver problems, might not pursue this). No plan for emergent cath at this point; will follow pt's course and act accordingly. (2) Acute diastolic CHF (congestive heart failure): Code(s): I50.31 - Acute diastolic (congestive) heart failure Status: Acute Assessment and Plan: More shortness of breath last night, with a chest x-ray compatible with CHF. Elevated proBNP. Responded to therapy including furosemide. Will give another dose today. Echo pending. CXR tmr. (3) Pneumonia: Code(s): J18.9 - Pneumonia, unspecified organism Status: Acute Assessment and Plan: May have pneumonitis as a side effect of his paclitaxel (Abraxane). (4) Elevated LFTs: Code(s): R79.89 - Other specified abnormal findings of blood chemistry Status: Acute Assessment and Plan: May be a side effect of gemcitabine (Gemzar). (5) CAD (coronary artery disease): Code(s): I25.10 - Atherosclerotic heart disease of [place] coronary artery without angina pectoris Status: Acute Assessment and Plan: Left anterior descending stent in 2009. Has been stable clinically and followed by Dr. Cortes. (6) Pancreas cancer: Code(s): C25.9 - Malignant neoplasm of pancreas, unspecified Status: Acute Assessment and Plan: Being treated by Dr. Cruz at [facility] or [phone] ) Last chemo 06/13/2021. Additional Plan Pt may need transfer to [facility] since some of his current problems may be related to his chemotherapy. History of Present Illness History of Present Illness Consult date/time: 06/24/21 10:21 Consult reason: Other (Elevated troponin) Reason For Visit: Pneumonia, Pancreatic Cancer Narrative: Mr. Maurizio Casey is a 75-year-old male I was asked to see at the request of the hospitalist Dr. Pretty for my advice and opinion regarding his elevated troponin of 2.69, in consultation. The patient is being treated for a small pancreatic cancer dx'd January [address] Cruz at [facility]. The last doses of Gemzar and Abraxane were on Jun 13. At that time his AST and ALT were normal, H&H was 10/29.5, WBC 2.9. He also has a history of CAD, diabetes, COPD, diastolic CHF, stroke, dyslipidemia, LISANDRA on CPAP and Parkinson's disease. The patient was in his usual state of health, not feeling well with chronic MCKEON secondary to COPD, but last night developed nonproductive cough and shortness of breath. He was admitted to the emergency room with shortness of breath. He was started on treatment for COPD exacerbation and pneumonia. He had acute respiratory distress around 12:30 a.m. such that he could hardly talk, and a rapid response was called. His O2 sat was 75-85%. He was given Lasix, morphine, a non-rebreather mask for a little while, and some Solu-Medrol. This morning his troponin came back at 2.69. The patient is feeling much better, mildly s
[2021-06-24] MEDS: MAGNESIUM SULF 4 GM/WATER100ML 4 GM/100 ML BAG IVPB (11:53)
[2021-06-24] MEDS: PANTOPRAZOLE SODIUM IV 40 MG VIAL IV PUSH ×2 (12:05→17:37)
[2021-06-24 12:25] LABS: Reflex Lactic Acid Yes or No Add Lactic
[2021-06-24] MEDS: ALBUTEROL SULFATE (*SP) AEROSOL 1 PUFF 2 PUFF INHALATION ×3 (12:40→20:02)
[2021-06-24 13:34] LABS: Basophils Percent Auto 0.5 % (0.2-1.2); Hemoglobin 8.4 g/dL (14.0-18.0); Immature Granulocyte Absolute 0.05 K/mm3 (0.00-0.031); Immature Granulocyte Percent A 0.8 % (0-0.5); Lymphocytes Absolute Auto 0.93 K/mm3 (0.9-3.2); Lymphocytes Percent Auto 14.6 % (18.3-44.2); Mean Corpuscular HGB Conc 33.6 g/dl (32-36); Mean Corpuscular Hemoglobin 31.7 pg (26-34); Mean Corpuscular Volume 94.3 fl (80-100); Mean Platelet Volume 11.6 fl (7.4-10.4); Monocytes Absolute Auto 0.5 K/mm3 (0.1-0.6); Neutrophils Absolute Auto 4.9 K/mm3 (1.3-6.7); Neutrophils Percent Auto 77.1 % (45.5-73.1); Nucleated Red Blood Cells Perc 0.5 % (0.0-0.2); Platelet Count Result 235 k/mm3 (150-375); Red Blood Count 2.65 M/mm3 (4.6-6.20); Red Cell Distribution Width 18.2 % (11.5-14.5); White Blood Count 6.4 K/mm3 (4.5-10.0)
[2021-06-24 13:44] LABS: INR 1.7; Prothrombin Time 19.8 Seconds (11.1-14.7)
[2021-06-24 13:45] LABS: Lactic Acid 3.2 mmol/L (0.7-2.1); Partial Thromboplastin Time 35.7 SECONDS (22.3-36.8)
[2021-06-24] MEDS: CHOLECALCIFEROL 1,000 UNITS TABLET 1000 UNITS PO (14:54)
[2021-06-24] MEDS: FINASTERIDE 5 MG TABLET PO (14:54)
[2021-06-24] MEDS: NEBIVOLOL HCL 5 MG TABLET 10 MG PO (14:55)
[2021-06-24] MEDS: CARBIDOPA/LEVODOPA 25/100 MG TABLET 1 TABLET PO ×3 (14:59→20:58)
[2021-06-24] MEDS: TAMSULOSIN HCL 0.4 MG CAPSULE PO (14:59)
[2021-06-24] MEDS: HEPARIN SOD/D5W 100 UNITS/ML 25,000 UNITS/250 ML BAG 9 UNITS IV CONT (15:21)
--- NOTE | 2021-06-24 16:31 | PM.IMPN ---
Progress Note: A&P Assessment and Plan (1) Acute respiratory failure with hypoxia: Code(s): J96.01 - Acute respiratory failure with hypoxia Status: Acute (2) Acute diastolic CHF (congestive heart failure): Code(s): I50.31 - Acute diastolic (congestive) heart failure Status: Acute (3) Lactic acidosis: Code(s): E87.2 - Acidosis Status: Acute (4) NSTEMI (non-ST elevated myocardial infarction): Code(s): I21.4 - Non-ST elevation (NSTEMI) myocardial infarction Status: Acute (5) Troponin level elevated: Code(s): R77.8 - Other specified abnormalities of plasma proteins Status: Acute (6) Community acquired pneumonia: Qualifiers: Laterality: unspecified laterality Qualified Code(s): J18.9 - Pneumonia, unspecified organism Code(s): J18.9 - Pneumonia, unspecified organism Status: Acute (7) Pulmonary edema cardiac cause: Code(s): I50.1 - Left ventricular failure, unspecified Status: Acute (8) Elevated levels of transaminase & lactic acid dehydrogenase: Code(s): R74.01 - Elevation of levels of liver transaminase levels; R74.02 - Elevation of levels of lactic acid dehydrogenase [LDH] Status: Acute (9) Elevated bilirubin: Code(s): R17 - Unspecified jaundice Status: Acute (10) COPD (chronic obstructive pulmonary disease): Qualifiers: COPD type: unspecified COPD Qualified Code(s): J44.9 - Chronic obstructive pulmonary disease, unspecified Code(s): J44.9 - Chronic obstructive pulmonary disease, unspecified Status: Acute (11) Suspected COVID-19 virus infection: Code(s): Z20.822 - Contact with and (suspected) exposure to COVID-19 Status: Acute (12) Pancreatic malignant neoplasm: Qualifiers: Pancreatic malignancy location: unspecified Qualified Code(s): C25.9 - Malignant neoplasm of pancreas, unspecified Code(s): C25.9 - Malignant neoplasm of pancreas, unspecified Status: Acute Additional Plan 1. Elevated troponin possibly secondary to NSTEMI: -patient is on Abraxane for pancreatic cancer treatment. -this could have potentially caused a myocardial infarction. However patient also has significant history of coronary artery disease. -echo ordered. -cardiology consult appreciated -would recommend continuing patient on IV heparin drip and discontinuing Eliquis at this time. However will defer this judgment to Cardiology. 2. Lactic acidosis: -possibly sepsis. However this could be very well possible because of congestive hepatopathy and acute decompensated heart failure 3. Acute decompensated heart failure: -echo ordered -continue IV Lasix b.i.d. 4. Congestive hepatopathy: -as reported by elevated ALT AST and hyperbilirubinemia -elevated lactic acid is also sinus 5. Community-acquired pneumonia:: -while patient is being tested for COVID, it is nelson to continue IV ceftriaxone azithromycin as well. Time Spent With Patient Time with patient: 25 - 35 minutes Subjective Date/time seen: 06/24/21 16:31 Interval history: 75-year-old male with past medical history significant for Parkinson's disease, type 2 diabetes mellitus, COPD, diastolic heart failure, CAD status post stent placement and PFO closure in 2017, stroke, hypertension, hyperlipidemia, LISANDRA on CPAP, pancreatic cancer on chemotherapy (Abraxane) presented with shortness of breath. He was brought into the ED by EMS after he was noted to have an oxygen saturation of 88% at home. Overnight while patient was admitted to the hospital a rapid response was called because patient was noted to be decompensating and requiring increasing amount of oxygen. EKG revealed sinus tachycardia. Troponin this a.m. was noted to be elevated to 2.8. Cardiology has been brought on board. And troponin is being monitored. Patient is being started on aspirin, Eliquis is being discontinued as per Cardiology recommendations and
[2021-06-24 17:10] LABS: Glucose Point of Care 255 mg/dl (65-105)
[2021-06-24] MEDS: ASPIRIN 81 MG CHEWABLE TABLET 324 MG PO (17:30)
[2021-06-24] MEDS: CENTRAL LINE FLUSH 10 ML IV PUSH ×2 (17:31→20:58)
[2021-06-24] MEDS: FUROSEMIDE INJ 40 MG/4 ML VIAL 20 MG IV PUSH (17:34)
[2021-06-24 20:00] LABS: Glucose Point of Care 228 mg/dl (65-105)
[2021-06-24] MEDS: AZELASTINE HCL NASAL 0.1% 137 MCG/SPR 30 ML BTL 1 SPRAY NASAL (20:58)
[2021-06-24 21:40] LABS: Partial Thromboplastin Time 53.3 SECONDS (22.3-36.8)
[2021-06-24 21:49] LABS: Lactic Acid Reflex 3.3 mmol/L (0.7-2.1)
[2021-06-24] MEDS: HEPARIN SODIUM 5,000 UNITS/ML VIAL 4000 UNITS IV PUSH (22:09)
[2021-06-25] VITALS (20 sets, daily range): BP systolic 91–117; BP diastolic 53–72; PULSE 77–92; RESP 20–24; TEMP 36.2–36.9; O2SAT 93–100; BMI 29.4
[2021-06-25 00:27] LABS: Reflex Lactic Acid Yes or No Add Lactic
[2021-06-25] MEDS: ALBUTEROL SULFATE (*SP) AEROSOL 1 PUFF 2 PUFF INHALATION ×5 (00:47→20:35)
[2021-06-25 01:41] LABS: Lactic Acid 1.7 mmol/L (0.7-2.1)
[2021-06-25] MEDS: CENTRAL LINE FLUSH 10 ML IV PUSH ×3 (05:05→22:48)
[2021-06-25 05:25] LABS: Basophils Percent Auto 0.3 % (0.2-1.2); Hematocrit 23.1 % (42.0-52.0); Hemoglobin 7.6 g/dL (14.0-18.0); Immature Granulocyte Absolute 0.24 K/mm3 (0.00-0.031); Immature Granulocyte Percent A 2.3 % (0-0.5); Lymphocytes Absolute Auto 1.22 K/mm3 (0.9-3.2); Lymphocytes Percent Auto 11.9 % (18.3-44.2); Mean Corpuscular HGB Conc 32.9 g/dl (32-36); Mean Corpuscular Hemoglobin 31.3 pg (26-34); Mean Corpuscular Volume 95.1 fl (80-100); Mean Platelet Volume 11.8 fl (7.4-10.4); Monocytes Absolute Auto 1.5 K/mm3 (0.1-0.6); Neutrophils Absolute Auto 7.2 K/mm3 (1.3-6.7); Neutrophils Percent Auto 70.5 % (45.5-73.1); Nucleated Red Blood Cells Perc 0.3 % (0.0-0.2); Platelet Count Result 264 k/mm3 (150-375); Red Blood Count 2.43 M/mm3 (4.6-6.20); Red Cell Distribution Width 18.1 % (11.5-14.5); White Blood Count 10.3 K/mm3 (4.5-10.0)
[2021-06-25 05:45] LABS: Alanine Aminotransferase 100 U/L (4-50); Albumin Level 2.8 g/dL (3.5-5.1); Alkaline Phosphatase 270 U/L (38-126); Anion Gap 4 mmol/L (8-16); Aspartate Amino Transferase 132 U/L (17-59); Bilirubin,Total 0.8 mg/dL (0.2-1.3); Blood Urea Nitrogen 16 mg/dL (9-20); CRP 7.3 mg/dL (<1.0); Calcium 7.9 mg/dL (8.4-10.2); Carbon Dioxide 30 mmol/L (22-30); Chloride 99 mmol/L (98-107); Creatine Kinase 121 U/L (55-170); Estimated CRCL calculation 71 ml/min; Estimated Glomerular Filt Rate > 60; Glucose 225 mg/dL (65-110); Potassium 3.2 mmol/L (3.4-5.0); Sodium 133 mmol/L (137-145)
[2021-06-25 05:51] LABS: Lactic Acid Reflex 1.5 mmol/L (0.7-2.1)
[2021-06-25 06:41] LABS: Platelet Estimate Adequate (Adequate)
[2021-06-25 06:42] LABS: Anisocytosis 2+ (NORMAL); Hypochromasia 2+ (NORMAL); Large Platelets Present; Ovalocytes 1+ (NORMAL); Poikilocytosis 1+ (NORMAL); Stomatocytes 1+ (NORMAL)
[2021-06-25 07:11] LABS: INR 1.5; Partial Thromboplastin Time 52.2 SECONDS (22.3-36.8); Prothrombin Time 17.5 Seconds (11.1-14.7)
[2021-06-25 08:45] LABS: Glucose Point of Care 179 mg/dl (65-105)
[2021-06-25] MEDS: FINASTERIDE 5 MG TABLET PO (09:29)
[2021-06-25] MEDS: CARBIDOPA/LEVODOPA 25/100 MG TABLET 1 TABLET PO ×3 (09:30→19:27)
[2021-06-25] MEDS: ASPIRIN 81 MG CHEWABLE TABLET PO (09:31)
[2021-06-25] MEDS: CHOLECALCIFEROL 1,000 UNITS TABLET 1000 UNITS PO (09:31)
[2021-06-25] MEDS: TAMSULOSIN HCL 0.4 MG CAPSULE PO (09:32)
[2021-06-25] MEDS: AZELASTINE HCL NASAL 0.1% 137 MCG/SPR 30 ML BTL 1 SPRAY NASAL ×2 (09:32→21:16)
[2021-06-25] MEDS: INSULIN GLARGINE (*BKC) 100 UNITS/ML SUB-Q (09:33)
[2021-06-25] MEDS: PANTOPRAZOLE SODIUM IV 40 MG VIAL IV PUSH ×2 (09:35→19:29)
[2021-06-25] MEDS: FUROSEMIDE INJ 40 MG/4 ML VIAL 20 MG IV PUSH (09:36)
[2021-06-25] MEDS: POTASSIUM CHLORIDE 20 MEQ PACKET (FOR LIQUID) 40 MEQ PO (10:43)
--- NOTE | 2021-06-25 11:57 | ECHO_ITS ---
Patient Info Name: Maurizio Casey Age: 75 years : 1945 Gender: Male Ht: 69 in Wt: 199 lbs BSA: 2.12 m2 HR: 86 bpm BP: 110 / 70 mmHg Heart Rhythm: Sinus Rhythm Exam Date: 06/25/2021 11:57 AM Exam Location: [facility] Patient Status: Inpatient Admit Date: 06/25/2021 Staff Ordering Physician: Supriya Chang MD Dance Therapist: Jose Aguero, MIGUEL, RT Attending Provider: Lauren Pretty MD Referring Physician: Bernardo MUÑOZ; Exam Type: CA echo doppler color flow Study Info Indications I50.9 - Heart failure, unspecified Complete two-dimensional, color flow and Doppler transthoracic echocardiogram is performed. Strain analysis performed. Summary 1. Complete two-dimensional, color flow and Doppler transthoracic echocardiogram is performed. 2. Left ventricular systolic function is moderately reduced, estimated at 35-40%. 3. There is mildly increased left ventricular wall thickness. 4. The left ventricular diastolic function is grade I diastolic dysfunction. 5. Left atrial chamber dimension is moderately enlarged. 6. Right atrial chamber dimension is mildly enlarged. 7. There is mild aortic valve stenosis with a peak velocity of 158 cm/s, mean gradient of 6 mmHg, and aortic valve area of 1.7 cm2. 8. There is mild mitral valve regurgitation. 9. There is trace tricuspid valve regurgitation. 10. Mild pulmonary hypertension, estimated pulmonary arterial systolic pressure is 35 mmHg. Left Ventricle Left ventricular chamber dimension is normal. Left ventricular systolic function is moderately reduced, estimated at 35-40%. There is mildly increased left ventricular wall thickness. The left ventricular diastolic function is grade I diastolic dysfunction. Global longitudinal strain is mildly elevated at -14 %. Right Ventricle Right ventricular chamber dimension is normal. Right ventricular systolic function is normal. Left Atria Left atrial chamber dimension is moderately enlarged. Right Atria Right atrial chamber dimension is mildly enlarged. Aortic Valve The aortic valve is trileaflet. There is mild aortic valve stenosis with a peak velocity of 158 cm/s, mean gradient of 6 mmHg, and aortic valve area of 1.7 cm2. There is no aortic valve regurgitation. There is mild aortic valve calcification. Pulmonic Valve The pulmonic valve is not well visualized. There is trace pulmonic regurgitation. Mitral Valve The mitral valve has thickened leaflets. There is mild mitral valve regurgitation. The mitral valve annulus is severely calcified. Tricuspid Valve The tricuspid valve leaflets are normal. There is trace tricuspid valve regurgitation. Mild pulmonary hypertension, estimated pulmonary arterial systolic pressure is 35 mmHg. Pericardium/Pleural The pericardium appears normal. There is small pericardial effusion. Inferior Vena Cava Dilated inferior vena cava with <50% collapse upon inspiration consistent with elevated right atrial pressure, 10 mmHg. Aorta The aortic root size at the sinus of Valsalva is normal. There is mild aortic atherosclerosis. Left Ventricular Outflow Tract Name Value Normal LVOT 2D LVOT Diameter 2.3 cm LVOT D
[2021-06-25 12:32] LABS: Glucose Point of Care 168 mg/dl (65-105)
[2021-06-25] MEDS: NEBIVOLOL HCL 5 MG TABLET 10 MG PO (12:42)
[2021-06-25 14:17] LABS: Partial Thromboplastin Time 63.3 SECONDS (22.3-36.8)
[2021-06-25] MEDS: HEPARIN SOD/D5W 100 UNITS/ML 25,000 UNITS/250 ML BAG 12 UNITS IV CONT (15:08)
[2021-06-25 15:20] LABS: Hematocrit 25.4 % (42.0-52.0); Hemoglobin 8.3 g/dL (14.0-18.0)
[2021-06-25] MEDS: HEPARIN SODIUM 5,000 UNITS/ML VIAL 3000 UNITS IV PUSH (15:38)
--- NOTE | 2021-06-25 16:16 | PM.PNCARD ---
Progress Note: A&P Additional Plan 75-year-old man with coronary artery disease remote history of PCI. He has been mostly bothered this past year by the development of a pancreatic head cancer which caused obstructive jaundice and is being treated with chemotherapy at [facility]. Anticipation apparently and the plan is for him ultimately to have a Whipple procedure. His breathlessness and hypoxemia on admission were noted and troponin elevation to triggering us to see him in consultation. Echocardiogram does demonstrate moderate LV systolic dysfunction. At this point I would recommend reducing the dose of his Bystolic and allowing me to start some MARSHA-inhibitor therapy for ideal medical therapy of LV systolic dysfunction. Undoubtedly his chemotherapy is the reason for his anemia and that is playing a role in his dyspnea as well. Of more immediate concern is also his Gram-negative bacteremia and intravenous antibiotics are being used for that. Almost certainly the patient will not be able to undergo chemotherapy this week. The hospitalist will undoubtedly correspond with the oncologists at [facility] regarding all of this. He is not a candidate nor does he need a follow-up coronary angiogram because of his troponin elevation or LV dysfunction he is not having symptomatic ischemia as far as I can tell Wally Cortes MD [facility] Subjective Date/time seen: Date of service: 06/25/21 16:17 Interval history: Follow-up visit in this 75-year-old man with: Coronary artery disease remote history of percutaneous revascularization. Also with a a remote history of percutaneous closure of a PFO. The patient unfortunately earlier this year was found to have a pancreatic malignancy presumably at the head of the pancreas which is being treated with chemotherapy with the anticipation of Whipple procedure in the foreseeable future at [facility]. [facility] with shortness of breath and was found to have evidence of some pulmonary congestion. Echocardiogram done yesterday does demonstrate moderate left ventricular systolic dysfunction. Troponin levels are elevated but no other clinical evidence of ACS. Also found to have Gram-negative bacteremia with E coli. Patient is relatively comfortable today and is asking how long he needs to stay in the hospital here. Apparently he was scheduled to start another round of chemotherapy on Friday of this week over at [facility]. Exam Const: General: comfortable and no acute distress Other: Elderly gentleman very pleasant but somewhat emotional and tearful HENMT: Mouth: Yes moist mucous membranes Eyes: Sclera: sclerae normal Pupils: Equal, round and reactive pupils present Neck: Neck: supple and no JVD Resp: Effort & Inspection: normal respiratory effort Other: Breath sounds are relatively clear at this time Cardio: Rate: regular rate Rhythm: regular rhythm GI: GI Palp: Yes Soft to palpation Auscultation: normal bowel sounds Skin: General skin exam: normal color Neuro: Cognition (Neuro): normal cognition Extrem: General: normal to inspection Objective Data Vital Signs Vital Signs: Vital Signs - 24 hr 06/24/21 16:30 06/24/21 19:00 06/24/21 20:00 Temperature 36.9 C 36.0 C L Pulse Rate 98 79 Respiratory Rate 18 20 Blood Pressure 98/60 L 90/59 L 107/68 Pulse Oximetry 95 98 06/24/21 20:06 06/24/21 22:00 06/24/21 23:00 Temperature Pulse Rate 77 82 82 Respiratory Rate Blood Pressure Pulse Oximetry 98 98 06/24/21 23:30 06/25/21 00:00 06/25/21 01:00 Temperature 36.4 C L Pulse Rate 80 77 82 Respiratory Rate 22 H Blood Pressure 98/54 L Pulse Oximetry 100 99 97 06/25/21 02:00 06/25/21 02:39 06/25/21 04:00 Temperature 36.3 C L Pulse Rate 92 91 92 Respiratory Rate 24 H Blood Pressure 104/53 L Pulse Oximetry 99 99 06/25/21 04:25 06/25/21 06:00 06/25/21 08:00 Temperature 36.9 C Pulse Rate 79 79 88 Respiratory Rate 22 H Blood Pressur
[2021-06-25 16:20] LABS: SARS-CoV-2 RNA PCR Negative
[2021-06-25 17:39] LABS: Glucose Point of Care 144 mg/dl (65-105)
--- NOTE | 2021-06-25 19:12 | PM.IMPN ---
Progress Note: A&P Assessment and Plan (1) Pancreatic malignant neoplasm: Qualifiers: Pancreatic malignancy location: unspecified Qualified Code(s): C25.9 - Malignant neoplasm of pancreas, unspecified Code(s): C25.9 - Malignant neoplasm of pancreas, unspecified Status: Acute (2) Suspected COVID-19 virus infection: Code(s): Z20.822 - Contact with and (suspected) exposure to COVID-19 Status: Acute (3) Elevated bilirubin: Code(s): R17 - Unspecified jaundice Status: Acute (4) Elevated levels of transaminase & lactic acid dehydrogenase: Code(s): R74.01 - Elevation of levels of liver transaminase levels; R74.02 - Elevation of levels of lactic acid dehydrogenase [LDH] Status: Acute (5) Pulmonary edema cardiac cause: Code(s): I50.1 - Left ventricular failure, unspecified Status: Acute (6) Troponin level elevated: Code(s): R77.8 - Other specified abnormalities of plasma proteins Status: Acute (7) NSTEMI (non-ST elevated myocardial infarction): Code(s): I21.4 - Non-ST elevation (NSTEMI) myocardial infarction Status: Acute (8) Acute respiratory failure with hypoxia: Code(s): J96.01 - Acute respiratory failure with hypoxia Status: Acute (9) Acute systolic heart failure: Code(s): I50.21 - Acute systolic (congestive) heart failure Status: Acute (10) CAD (coronary artery disease): Qualifiers: Coronary Disease-Associated Artery/Lesion type: unspecified vessel or lesion type [place] vs. transplanted heart: [place] heart Associated angina: with stable angina Qualified Code(s): I25.118 - Atherosclerotic heart disease of [place] coronary artery with other forms of angina pectoris Code(s): I25.10 - Atherosclerotic heart disease of [place] coronary artery without angina pectoris Status: Acute (11) Type 2 NV (myocardial infarction): Code(s): I21.A1 - Myocardial infarction type 2 Status: Acute (12) Sepsis: Qualifiers: Sepsis type: Escherichia coli Sepsis acute organ dysfunction status: with acute organ dysfunction Severe sepsis acute organ dysfunction type: acute respiratory failure Acute respiratory failure type: with hypoxia Severe sepsis shock status: without septic shock Qualified Code(s): A41.51 - Sepsis due to Escherichia coli [E. coli]; R65.20 - Severe sepsis without septic shock; J96.01 - Acute respiratory failure with hypoxia Code(s): A41.9 - Sepsis, unspecified organism Status: Acute (13) LISANDRA on CPAP: Code(s): G47.33 - Obstructive sleep apnea (adult) (pediatric); Z99.89 - Dependence on other enabling machines and devices Status: Acute (14) Escherichia coli sepsis: Code(s): A41.51 - Sepsis due to Escherichia coli [E. coli] Status: Acute (15) Anemia: Qualifiers: Anemia type: unspecified type Qualified Code(s): D64.9 - Anemia, unspecified Code(s): D64.9 - Anemia, unspecified Status: Acute Additional Plan 1. E coli bacteremia -patient is noted to have part of 2 cultures positive for E coli -patient started IV Zosyn -blood cultures will be repeated tomorrow 06/26 -urinalysis appeared to be [place] however urine culture was resulted negative -ultrasound abdomen revealed distended gallbladder without any Aguero sign or evidence of cholelithiasis -insertion the source of sepsis refill get CT abdomen pelvis after discussion with infectious disease 2. Elevated troponin, NSTEMI, type 2: -cardiology board -troponin peaked at 3 -in light of elevated troponin, Eliquis was on hold and patient was started on heparin drip as per Cardiology recommendations -will await Cardiology recommendations regarding discontinuing heparin as this seems to be less likely due to active ischemia 3. Acute on chronic systolic heart failure: -patient with ECHO positive for 35 40% ejection fraction, which is new from his prior basel
[2021-06-25 20:34] LABS: Glucose Point of Care 135 mg/dl (65-105)
[2021-06-25 22:24] LABS: Partial Thromboplastin Time 103.2 SECONDS (22.3-36.8)
[2021-06-26] VITALS (18 sets, daily range): BP systolic 104–132; BP diastolic 56–73; PULSE 80–100; RESP 18–22; TEMP 36–36.9; O2SAT 93–99
[2021-06-26] MEDS: ALBUTEROL SULFATE (*SP) AEROSOL 1 PUFF 2 PUFF INHALATION ×5 (01:36→20:15)
[2021-06-26 04:27] LABS: Hematocrit 22.4 % (42.0-52.0); Hemoglobin 7.2 g/dL (14.0-18.0); Mean Corpuscular HGB Conc 32.1 g/dl (32-36); Mean Corpuscular Hemoglobin 30.9 pg (26-34); Mean Corpuscular Volume 96.1 fl (80-100); Mean Platelet Volume 11.5 fl (7.4-10.4); Platelet Count Result 303 k/mm3 (150-375); Red Blood Count 2.33 M/mm3 (4.6-6.20); Red Cell Distribution Width 18.5 % (11.5-14.5); White Blood Count 8.1 K/mm3 (4.5-10.0)
[2021-06-26 04:40] LABS: Partial Thromboplastin Time 87.5 SECONDS (22.3-36.8)
[2021-06-26 05:03] LABS: Band Neutrophils Percent 9 % (0-6); Lymphocytes Absolute Manual 1.62 K/mm3 (1.1-4.5); Monocytes Absolute Manual 0.72 K/mm3 (0.1-0.90); Monocytes Percent Manual 9 % (3-9); Neutrophils Absolute Manual 5.75 K/mm3 (1.3-6.7); Neutrophils Percent Manual 62 % (46-73); Nucleated Red Blood Cells 1 %; Platelet Estimate Adequate (Adequate); Total Cells Counted 100
[2021-06-26 05:04] LABS: Anisocytosis 1+ (NORMAL); Ovalocytes 1+ (NORMAL)
[2021-06-26 05:35] LABS: Alanine Aminotransferase 61 U/L (4-50); Albumin Level 2.6 g/dL (3.5-5.1); Alkaline Phosphatase 214 U/L (38-126); Anion Gap 6 mmol/L (8-16); Aspartate Amino Transferase 53 U/L (17-59); Bilirubin,Total 0.7 mg/dL (0.2-1.3); Blood Urea Nitrogen 17 mg/dL (9-20); Carbon Dioxide 27 mmol/L (22-30); Chloride 101 mmol/L (98-107); Estimated CRCL calculation 63 ml/min; Estimated Glomerular Filt Rate > 60; Glucose 118 mg/dL (65-110); Potassium 3.6 mmol/L (3.4-5.0); Sodium 134 mmol/L (137-145)
[2021-06-26] MEDS: CENTRAL LINE FLUSH 10 ML IV PUSH ×3 (05:39→21:49)
[2021-06-26 08:41] LABS: Glucose Point of Care 111 mg/dl (65-105)
--- NOTE | 2021-06-26 09:40 | PM.PNCARD ---
Progress Note: A&P Assessment and Plan (1) Type 2 VA (myocardial infarction): Code(s): I21.A1 - Myocardial infarction type 2 Status: Acute Assessment and Plan: Elevated troponin in a patient with a history of CAD. No anginal symptoms. Perhaps some slight ST depression in V5 and V6 on the EKG when he was hypoxic but otherwise no ischemic changes. Patient was very hypoxic which may have provoked this troponin spill. Acute coronary syndrome is not excluded but not the likely etiology. His chemotherapeutic agent, Abraxane, is also known to cause some myocardial ischemia and other issues. Patientlis stable now. Echo showed LV systolic dysfunction with EF 30-40%. Bystolic discontinued, started on lisinopril Heparin can be discontinued (2) Acute diastolic CHF (congestive heart failure): Code(s): I50.31 - Acute diastolic (congestive) heart failure Status: Acute Assessment and Plan: On admission chest x-ray compatible with CHF. Elevated proBNP. Responded to therapy including furosemide. EF 30-40%. Appear euvolemic on exam. No SOB, edema. (3) Pneumonia: Code(s): J18.9 - Pneumonia, unspecified organism Status: Acute Assessment and Plan: May have pneumonitis as a side effect of his paclitaxel (Abraxane). (4) Elevated LFTs: Code(s): R79.89 - Other specified abnormal findings of blood chemistry Status: Acute Assessment and Plan: May be a side effect of gemcitabine (Gemzar). (5) CAD (coronary artery disease): Qualifiers: Associated angina: with stable angina Coronary Disease-Associated Artery/Lesion type: unspecified vessel or lesion type [place] vs. transplanted heart: nondalton heart Qualified Code(s): I25.118 - Atherosclerotic heart disease of nond[place] coronary artery with other forms of angina pectoris Code(s): I25.10 - Atherosclerotic heart disease of nondal[place] coronary artery without angina pectoris Status: Acute Assessment and Plan: Left anterior descending stent in 2009. Has been stable clinically and followed by Dr. Cortes. (6) Pancreas cancer: Code(s): C25.9 - Malignant neoplasm of pancreas, unspecified Status: Acute Assessment and Plan: Being treated by Dr. Cruz at [facility] or [phone] ) Last chemo 06/13/2021. Subjective Date/time seen: 06/26/21 09:40 Interval history: Cardiology follow up for CAD, cardiomyopathy Date of service 06/26/2021: He's feeling okay today. Denies any shortness of breath or chest pain. Infectious source likely biliary stent - plan per hospitalist to transfer patient to [facility] for stent removal and further management. Review of Systems Constitutional: Constitutional: Reports fatigue, Denies headache(s), Reports lethargy and Reports weakness Eyes: Eyes: Reports no additional eye complaints ENT: Denies headache(s) and Denies epistaxis Cardiovascular: Cardiovascular: Denies chest pain, Denies pedal edema, Denies leg edema, Denies lightheadedness, Denies palpitations, Reports dyspnea and Reports dyspnea on exertion Respiratory: Respiratory: Reports cough, Denies hemoptysis, Reports dyspnea and Reports dyspnea on exertion Gastrointestinal: Gastrointestinal: Denies abdominal pain and Denies hematochezia Genitourinary: Genitourinary: Denies hematuria Musculoskeletal: Musculoskeletal: Reports arthralgias and Reports stiffness ( Parkinson's disease) Integumentary/Breasts: Skin/Breast: Denies rash Neurologic: Denies behavioral changes, Denies confusion, Denies headache(s) and Reports weakness Psychiatric: Psychiatric: Denies behavioral changes and Denies confusion Endocrine: Endocrine: Reports fatigue and Denies palpitations Exam Narrative: Pleasant older male lying nearly supine in bed, mildly tachypneic but not in any distress. Const: General: comf
[2021-06-26] MEDS: PANTOPRAZOLE SODIUM IV 40 MG VIAL IV PUSH ×2 (09:54→17:47)
[2021-06-26] MEDS: TAMSULOSIN HCL 0.4 MG CAPSULE PO (09:54)
[2021-06-26] MEDS: lisinopriL 5 MG TABLET PO (09:55)
[2021-06-26] MEDS: NEBIVOLOL HCL 5 MG TABLET PO (09:55)
[2021-06-26] MEDS: INSULIN GLARGINE (*BKC) 100 UNITS/ML SUB-Q (09:55)
[2021-06-26] MEDS: AZELASTINE HCL NASAL 0.1% 137 MCG/SPR 30 ML BTL 1 SPRAY NASAL ×2 (09:56→21:34)
[2021-06-26] MEDS: FINASTERIDE 5 MG TABLET PO (09:56)
[2021-06-26] MEDS: CHOLECALCIFEROL 1,000 UNITS TABLET 1000 UNITS PO (09:56)
[2021-06-26] MEDS: CARBIDOPA/LEVODOPA 25/100 MG TABLET 1 TABLET PO ×4 (09:57→21:34)
[2021-06-26] MEDS: ASPIRIN 81 MG CHEWABLE TABLET PO (09:57)
[2021-06-26] MEDS: HEPARIN SOD/D5W 100 UNITS/ML 25,000 UNITS/250 ML BAG 14 UNITS IV CONT (10:11)
--- NOTE | 2021-06-26 12:06 | PM.IMPN ---
Progress Note: A&P Assessment and Plan (1) History of biliary stent insertion: Code(s): Z98.890 - Other specified postprocedural states Status: Acute (2) Escherichia coli sepsis: Code(s): A41.51 - Sepsis due to Escherichia coli [E. coli] Status: Acute (3) Acute systolic heart failure: Code(s): I50.21 - Acute systolic (congestive) heart failure Status: Acute (4) Pancreatic malignant neoplasm: Qualifiers: Pancreatic malignancy location: unspecified Qualified Code(s): C25.9 - Malignant neoplasm of pancreas, unspecified Code(s): C25.9 - Malignant neoplasm of pancreas, unspecified Status: Acute (5) Suspected COVID-19 virus infection: Code(s): Z20.822 - Contact with and (suspected) exposure to COVID-19 Status: Ruled-out (6) Elevated bilirubin: Code(s): R17 - Unspecified jaundice Status: Resolved (7) Chronic anemia: Code(s): D64.9 - Anemia, unspecified Status: Acute (8) NSTEMI (non-ST elevated myocardial infarction): Code(s): I21.4 - Non-ST elevation (NSTEMI) myocardial infarction Status: Acute (9) Troponin level elevated: Code(s): R77.8 - Other specified abnormalities of plasma proteins Status: Acute (10) HTN (hypertension): Qualifiers: Hypertension type: unspecified Qualified Code(s): I10 - Essential (primary) hypertension Code(s): I10 - Essential (primary) hypertension Status: Acute (11) Pancreas cancer: Qualifiers: Pancreatic malignancy location: head of pancreas Qualified Code(s): C25.0 - Malignant neoplasm of head of pancreas Code(s): C25.9 - Malignant neoplasm of pancreas, unspecified Status: Acute (12) Sepsis: Qualifiers: Acute respiratory failure type: with hypoxia Sepsis acute organ dysfunction status: with acute organ dysfunction Sepsis type: Escherichia coli Severe sepsis acute organ dysfunction type: acute respiratory failure Severe sepsis shock status: without septic shock Qualified Code(s): A41.51 - Sepsis due to Escherichia coli [E. coli]; R65.20 - Severe sepsis without septic shock; J96.01 - Acute respiratory failure with hypoxia Code(s): A41.9 - Sepsis, unspecified organism Status: Acute (13) COPD (chronic obstructive pulmonary disease): Qualifiers: COPD type: unspecified COPD Qualified Code(s): J44.9 - Chronic obstructive pulmonary disease, unspecified Code(s): J44.9 - Chronic obstructive pulmonary disease, unspecified Status: Acute (14) LISANDRA on CPAP: Code(s): G47.33 - Obstructive sleep apnea (adult) (pediatric); Z99.89 - Dependence on other enabling machines and devices Status: Acute Additional Plan 1. E coli bacteremia and sepsis secondary to biliary stent: -patient with history of pancreatic head cancer status post biliary stent placement -was noted to be positive for E coli sepsis -urinalysis with concerns for infection however urine culture returned negative -CT abdomen pelvis performed revealed concerns for biliary stent present) fever not aware of the presence of distended patient not disclosed this information earlier) -given the presence of the biliary stent and E coli bacteremia this could potentially be the cause of -it is imperative the patient received evaluation of the stent and possible removal. However he would like to be transferred his primary hospital his biliary physician had placed the stent. In this hospital, currently we have the capacity interventional GI. -spoke with [facility] Dr. Hartmann, who accepted the patient. He is awaiting bed placement. -GI, id and Oncology on board -patient was receiving IV Zosyn. However this has now been changed to IV ceftriaxone 2 g Q 24hours after discussion with ID. 2. Type 2 NSTEMI, troponin elevation: -troponin peaked 3.2 - Now has downtrended to 1 point 3 -he is noted to be on heparin drip for this p
[2021-06-26 12:23] LABS: Glucose Point of Care 141 mg/dl (65-105)
--- NOTE | 2021-06-26 12:53 | PDONCCN ---
HPI - Date of Consult Date/Time: 06/26/21 12:53 Requesting Physician: Lauren Pretty MD Primary Care Provider: Cyril Degroot MD - Consult Narrative Reason for consult: Anemia and pancreatic cancer Narrative: Maurizio Casey is a 75 year old male with diagnosis of locally advanced pancreatic cancer in December of 2020 currently receiving chemotherapy at [facility] with Abraxane and Gemzar. Last treatment was about 2 weeks ago. He came into the hospital with extreme tiredness and fatigue and generalized weakness. He has been having poor appetite with some intermittent nausea vomiting. Denies any diarrhea constipation. Initial labs showed hemoglobin of 8.9 now dropped to 7.2. CT chest abdomen pelvis was performed that showed a small pleural effusion with mild pulmonary edema and interval placement of stent in the common bile duct and ill-defined mass of the head of the pancreas. Review of Systems - Review of Systems All systems reviewed & are unremarkable except as noted in HPI and bel - Neurologic Reports weakness, Denies behavioral changes, Denies confusion, Denies vertigo, Denies headache(s), Denies focal weakness, Denies numbness, Denies sensory deficit [facility] Medical History: Medical History (Last Updated 06/24/21 @ 11:49 by Supriya Chang MD) Arthritis CAD (coronary artery disease) 2010: Left anterior descending stent COPD (chronic obstructive pulmonary disease) Diastolic dysfunction Erectile dysfunction H/O: CVA (cerebrovascular accident) had stenting of a carotid artery and PFO closure. HLD (hyperlipidemia) HTN (hypertension) Lung nodule LISANDRA on CPAP Osteoarthritis Pancreatic cancer Parkinsons disease Parkinson's or Parkinson's like disease Pelvic fracture Presence of internal carotid stent Rhinitis Surgical History: Surgical History (Last Updated 06/24/21 @ 11:50 by Supriya Chang MD) H/O heart artery stent 2009 Left anterior descending stent, Dr. Cortes H/O inguinal hernia repair H/O prostatectomy History of appendectomy S/P patent foramen ovale closure 2014, for stroke Family History: Family History (Last Reviewed 06/24/21 @ 11:50 by Supriya Chang MD) Father Acute myocardial infarction, Onset Age: 59 Grandparent Cerebrovascular accident Mother Family history of malignant neoplasm of breast in first degree relative, Onset Age: 65 - Social History Social History: Social History (Last Updated 06/24/21 @ 11:50 by Supriya Chang MD) Alcohol Use: Alcohol intake: never Substance Use: Substance use: never Substance use type: does not use Others: Spiritual care concerns: No Smoking Status: Smoking status: Former smoker Meds Home Medications Medication Instructions Recorded Confirmed Type apixaban 5 mg tablet 5 mg PO BID 06/20/20 06/24/21 History nebivolol 10 mg tablet 10 mg PO DAILY 06/20/20 06/24/21 History pravastatin 40 mg tablet 40 mg PO DAILY 06/20/20 06/24/21 History tamsulosin 0.4 mg capsule 0.4 mg PO DAILY 06/20/20 06/24/21 History glycopyrrolate 9 mcg-formoterol 2 puff INHALATION Q12H #10.7 g 03/28/21 06/24/21 Rx 4.8 mcg HFA aerosol inhaler carbidopa 25 mg-levodopa 100 mg 1 tablet PO QID tablet 04/10/21 06/24/21 History tablet finasteride 5 mg tablet 5 mg PO DAILY tablet 04/10/21 06/24/21 History inhalational spacing device #10 ea 04/10/21 06/24/21 Rx benzonatate [Tessalon Perles] 200 mg PO TID PRN #20 cap 04/27/21 06/24/21 Rx cholecalciferol (vitamin D3) 25 mcg PO DAILY 06/23/21 06/24/21 History glucagon [Gvoke HypoPen 2-Pack] 1 mg SUBCUT ONCE PRN 06/23/21 06/24/21 History insulin aspart U-100 [Novolog See Rx Instructions .ROUTE .COMPLEX 06/23/21 06/24/21 History Flexpen U-100 Insulin] insulin degludec [Tresiba 6 unit SUBCUT QAM 06/23/21 06/24/21 History FlexTouch U-100] azelastine 1 spray INTRANASAL Q12H 06/24/21 06/24/21 History Al
[2021-06-26 15:04] LABS: Iron 80 ug/dL (49-181)
--- NOTE | 2021-06-26 15:10 | WPDGICN ---
Assessment and Plan Assessment and plan (1) Pancreatic malignant neoplasm: Qualifiers: Pancreatic malignancy location: unspecified Qualified Code(s): C25.9 - Malignant neoplasm of pancreas, unspecified Code(s): C25.9 - Malignant neoplasm of pancreas, unspecified Status: Acute Assessment and Plan: Pancreatic cancer recently identified and treated at [facility]. New diagnosis since December 2020. He has a stent placed by GI service therapy. Currently undergoing chemotherapy under oncology direction at [facility]. Plan is to transfer back for continued therapy and management. Anticipate stent replacement will be required. (2) History of biliary stent insertion: Code(s): Z98.890 - Other specified postprocedural states Status: Acute Assessment and Plan: Patient has a history of biliary stent placed because of pancreatic cancer in December of this year. Has been 5 months since this was placed in likely needs to be replaced given his elevation LFTs are present. (3) Chronic anemia: Code(s): D64.9 - Anemia, unspecified Status: Acute Assessment and Plan: Patient has chronic anemia currently felt to be stable. Likely related to his pancreatic cancer. Other comorbid disease contributing to this cannot be excluded. (4) Escherichia coli sepsis: Code(s): A41.51 - Sepsis due to Escherichia coli [E. coli] Status: Acute Assessment and Plan: Patient with E coli identified on blood cultures. Urine cultures are negative. Quite likely this is related to his biliary stent becoming obstructed also suggestive of this is is elevated LFTs. He has improved dramatically on antibiotics these should continue until stent is replaced. Currently patient has been accepted for transfer to [facility] with his established agricultural education teacher. Anticipate that antibiotics should continue until this is accomplished. Also continuing to hold Eliquis is suggested until stent is replaced. (5) Troponin level elevated: Code(s): R77.8 - Other specified abnormalities of plasma proteins Status: Acute (6) Elevated LFTs: Code(s): R79.89 - Other specified abnormal findings of blood chemistry Status: Acute Assessment and Plan: Elevated LFTs suggestive of biliary stent occlusion. These have improved with antibiotic use. At current patient is awaiting transfer to [facility] for stent exchange. LFT should continue a monitored after this is accomplished. (7) COPD (chronic obstructive pulmonary disease): Qualifiers: COPD type: unspecified COPD Qualified Code(s): J44.9 - Chronic obstructive pulmonary disease, unspecified Code(s): J44.9 - Chronic obstructive pulmonary disease, unspecified Status: Acute GI Consult Note Consult date/time: 06/26/21 15:10 HPI: Maurizio Casey is a 75 year old male I am asked to see because of pancreatic cancer and E coli sepsis. Patient has a history of underlying Parkinson's disease, COPD, had a syncopal event on Friday prompting admission to the hospital. Patient was found to be sepsis with E coli in his blood stream. X-ray examination revealed that he had a pancreatic stent. Patient's past history is significant that in December of this year he was found to have painless jaundice. A pancreatic cancer was identified at [facility] biliary stent stent was placed by the GI service. He has been followed by the oncologist at [facility] and has had 5 cycles of chemotherapy. He has had no exchange of the biliary stent yet. He apparently was doing well until his syncopal episode on Friday. Patient has subsequently been placed on antibiotics and is improving significantly. Currently denies any abdominal pain. His states his bowel habits are normal. He has not become jaundiced again. Since admission the hospital there is concern over congestive heart failure in the possibility of a small myocardial infarction. Previously he has
[2021-06-26 15:13] LABS: Percent Iron Saturation 40 % (20-50)
[2021-06-26 15:21] LABS: Folic Acid 8.5 ng/mL (2.76->20)
[2021-06-26 16:15] LABS: Glucose Point of Care 138 mg/dl (65-105)
[2021-06-26 20:58] LABS: Glucose Point of Care 144 mg/dl (65-105)
[2021-06-27] VITALS (10 sets, daily range): BP systolic 117–137; BP diastolic 65–89; PULSE 72–86; RESP 18–20; TEMP 36.6–37.2; O2SAT 92–96
[2021-06-27] MEDS: ALBUTEROL SULFATE (*SP) AEROSOL 1 PUFF 2 PUFF INHALATION ×5 (00:15→16:34)
[2021-06-27] MEDS: HEPARIN SOD/D5W 100 UNITS/ML 25,000 UNITS/250 ML BAG 14 UNITS IV CONT (04:06)
[2021-06-27] MEDS: CENTRAL LINE FLUSH 10 ML IV PUSH ×2 (05:13→14:25)
[2021-06-27 05:33] LABS: Hematocrit 23.7 % (42.0-52.0); Hemoglobin 7.4 g/dL (14.0-18.0); Mean Corpuscular HGB Conc 31.2 g/dl (32-36); Mean Corpuscular Hemoglobin 30.5 pg (26-34); Mean Corpuscular Volume 97.5 fl (80-100); Mean Platelet Volume 11.6 fl (7.4-10.4); Platelet Count Result 354 k/mm3 (150-375); Red Blood Count 2.43 M/mm3 (4.6-6.20); Red Cell Distribution Width 18.5 % (11.5-14.5); White Blood Count 8.6 K/mm3 (4.5-10.0)
[2021-06-27 05:41] LABS: Lactic Acid Reflex 0.9 mmol/L (0.7-2.1)
[2021-06-27 05:45] LABS: Alanine Aminotransferase 33 U/L (4-50); Albumin Level 2.9 g/dL (3.5-5.1); Alkaline Phosphatase 189 U/L (38-126); Anion Gap 6 mmol/L (8-16); Aspartate Amino Transferase 36 U/L (17-59); Bilirubin,Total 0.6 mg/dL (0.2-1.3); Blood Urea Nitrogen 13 mg/dL (9-20); CRP 3.6 mg/dL (<1.0); Carbon Dioxide 28 mmol/L (22-30); Chloride 103 mmol/L (98-107); Estimated CRCL calculation 71 ml/min; Estimated Glomerular Filt Rate > 60; Glucose 100 mg/dL (65-110); Magnesium 1.9 mg/dL (1.6-2.3); Phosphorus 3.5 mg/dL (2.5-4.5); Potassium 3.4 mmol/L (3.4-5.0); Sodium 137 mmol/L (137-145)
[2021-06-27 05:51] LABS: Partial Thromboplastin Time 140.3 SECONDS (22.3-36.8)
[2021-06-27 06:00] LABS: Band Neutrophils Percent 3 % (0-6); Lymphocytes Absolute Manual 3.35 K/mm3 (1.1-4.5); Metamyelocytes Percent 2 %; Monocytes Absolute Manual 0.51 K/mm3 (0.1-0.90); Monocytes Percent Manual 6 % (3-9); Neutrophils Absolute Manual 4.38 K/mm3 (1.3-6.7); Neutrophils Percent Manual 48 % (46-73); Promyelocytes Percent 2 %; Total Cells Counted 100
[2021-06-27 06:01] LABS: Hypochromasia 2+ (NORMAL); Platelet Estimate Adequate (Adequate); Poikilocytosis 1+ (NORMAL)
[2021-06-27 08:21] LABS: Glucose Point of Care 99 mg/dl (65-105)
[2021-06-27] MEDS: INSULIN GLARGINE (*BKC) 100 UNITS/ML SUB-Q (09:06)
[2021-06-27] MEDS: UMECLIDINIUM/VILANTEROL 62.5-25 MCG ELLIPTA 1 PUFF INHALATION (09:08)
[2021-06-27] MEDS: CHOLECALCIFEROL 1,000 UNITS TABLET 1000 UNITS PO (09:10)
[2021-06-27] MEDS: AZELASTINE HCL NASAL 0.1% 137 MCG/SPR 30 ML BTL 1 SPRAY NASAL (09:10)
[2021-06-27] MEDS: ASPIRIN 81 MG CHEWABLE TABLET PO (09:10)
[2021-06-27] MEDS: lisinopriL 5 MG TABLET PO (09:10)
[2021-06-27] MEDS: CARBIDOPA/LEVODOPA 25/100 MG TABLET 1 TABLET PO ×3 (09:10→16:41)
[2021-06-27] MEDS: FINASTERIDE 5 MG TABLET PO (09:10)
[2021-06-27] MEDS: PANTOPRAZOLE SODIUM IV 40 MG VIAL IV PUSH ×2 (09:10→16:41)
[2021-06-27] MEDS: TAMSULOSIN HCL 0.4 MG CAPSULE PO (09:10)
[2021-06-27] MEDS: NEBIVOLOL HCL 5 MG TABLET PO (09:11)
[2021-06-27 12:31] LABS: Glucose Point of Care 141 mg/dl (65-105)
--- NOTE | 2021-06-27 16:21 | PM.TDS ---
Transfer Discharge Sum: Prov Provider Date of admission: 06/25/21 08:48 Primary care physician: Cyril Degroot MD Admitting clinician: Marty Lin MD Attending physician on admission: Marty Lin Consults: 06/24/21 10:34 Consult to Physician Routine Comment: left message with exchange Consulting Provider: Supriya Chang acquisition marketing coordinator/MD group to consult: Senior Sales Consultant Cardiology Reason for consultation: Troponin elevation; SOB Has provider been notified: Yes 06/26/21 Consult to Physician Routine Comment: called office with consult Consulting Provider: Isaiah Shah acquisition marketing coordinator/MD group to consult: space control agent GI Reason for consultation: Ecoli sepsis in a patient with biliary stent for Pancreatic cancer manageme Has provider been notified: Yes Consult to Physician Routine Comment: spoke with md for consult Consulting Provider: Jorge Yan acquisition marketing coordinator/MD group to consult: Dr. Yan Reason for consultation: Ecoli sepsis in patient with biliary stent Has provider been notified: Yes Attending physician on discharge: Lauren Pretty Discharging clinician: Lauren Pretty Anticipated date of transfer: 06/27/21 Receiving physician/facility: [facility] DS: Admitting Diagnosis Discharge Date 06/27/2021 Admitting Diagnosis Sepsis CHF exacerbation Acute hypoxic respiratory failure DS: Discharge Diagnosis Discharge Diagnosis (1) Escherichia coli sepsis: Code(s): A41.51 - Sepsis due to Escherichia coli [E. coli] Status: Acute (2) Acute systolic heart failure: Code(s): I50.21 - Acute systolic (congestive) heart failure Status: Acute (3) History of biliary stent insertion: Code(s): Z98.890 - Other specified postprocedural states Status: Acute (4) Type 2 AL (myocardial infarction): Code(s): I21.A1 - Myocardial infarction type 2 Status: Acute (5) Pancreas cancer: Qualifiers: Pancreatic malignancy location: head of pancreas Qualified Code(s): C25.0 - Malignant neoplasm of head of pancreas Code(s): C25.9 - Malignant neoplasm of pancreas, unspecified Status: Acute (6) Acute respiratory failure with hypoxia: Code(s): J96.01 - Acute respiratory failure with hypoxia Status: Resolved (7) Cardiomyopathy: Code(s): I42.9 - Cardiomyopathy, unspecified Status: Acute Transfer Discharge Sum: Med Medications Active and Home Medications: Home Medications apixaban 5 mg tablet 5 mg PO BID 06/20/20 [History Confirmed 06/24/21] nebivolol 10 mg tablet 10 mg PO DAILY 06/20/20 [History Confirmed 06/24/21] pravastatin 40 mg tablet 40 mg PO DAILY 06/20/20 [History Confirmed 06/24/21] tamsulosin 0.4 mg capsule 0.4 mg PO DAILY 06/20/20 [History Confirmed 06/24/21] glycopyrrolate 9 mcg-formoterol 4.8 mcg HFA aerosol inhaler 2 puff INHALATION Q12H #10.7 g 03/28/21 [Rx Confirmed 06/24/21] carbidopa 25 mg-levodopa 100 mg tablet 1 tablet PO QID tablet 04/10/21 [History Confirmed 06/24/21] finasteride 5 mg tablet 5 mg PO DAILY tablet 04/10/21 [History Confirmed 06/24/21] inhalational spacing device #10 ea 04/10/21 [Rx Confirmed 06/24/21] benzonatate [Tessalon Perles] 200 mg PO TID PRN #20 cap 04/27/21 [Rx Confirmed 06/24/21] cholecalciferol (vitamin D3) 25 mcg PO DAILY 06/23/21 [History Confirmed 06/24/21] glucagon [Gvoke HypoPen 2-Pack] 1 mg SUBCUT ONCE PRN 06/23/21 [History Confirmed 06/24/21] insulin aspart U-100 [Novolog Flexpen U-100 Insulin] See Rx Instructions .ROUTE .COMPLEX 06/23/21 [History Confirmed 06/24/21] insulin degludec [Tresiba FlexTouch U-100] 6 unit SUBCUT QAM 06/23/21 [History Confirmed 06/24/21] azelastine 1 spray INTRANASAL Q12H 06/24/21 [History Confirmed 06/24/21] Active Medications Acetaminophen (Acetaminophen 325 Mg Tablet) 650 mg PO Q4H PRN PRN Reason: Mild Pain (1-3) or Fever Last Admin: 06/24/21 00:42 Dose: 650 mg Documented by: Albuterol (Albuterol Sulfate (*Sp) Aerosol 1 Puff) 2 puff
[2021-06-27 17:24] LABS: Glucose Point of Care 112 mg/dl (65-105)
[2021-06-27 20:04] LABS: Haptoglobin 160 mg/dL (43-212)
== END 2021-06-27 16:55 | disposition short-term general hospital (02) | DRG 919 ==
LOC: ANHED 20:44 → ANH2MED 23:59 → ANHIMU 06-24 11:33
PROVIDERS: Emergency Medicine; Internal Medicine Cardiovascular Disease; Internal Medicine Hematology & Oncology; Admitting Provider Internal Medicine; Emergency Provider Emergency Medicine; PCP Family Medicine Adolescent Medicine; Visit Provider Internal Medicine
DX: T85.79XA Infection and inflammatory reaction due to other internal prosthetic devices, implants and grafts, initial encounter (principal); A41.51 Sepsis due to Escherichia coli [E. coli]; I21.A1 Myocardial infarction type 2; J96.01 Acute respiratory failure with hypoxia; J69.0 Pneumonitis due to inhalation of food and vomit; R65.20 Severe sepsis without septic shock; I50.23 Acute on chronic systolic (congestive) heart failure; C25.0 Malignant neoplasm of head of pancreas; J44.1 Chronic obstructive pulmonary disease with (acute) exacerbation; E87.2 Acidosis; R17 Unspecified jaundice; I42.8 Other cardiomyopathies; E87.1 Hypo-osmolality and hyponatremia; J44.0 Chronic obstructive pulmonary disease with (acute) lower respiratory infection; D63.0 Anemia in neoplastic disease; G20 Parkinson's disease; G47.33 Obstructive sleep apnea (adult) (pediatric); E78.5 Hyperlipidemia, unspecified; M19.90 Unspecified osteoarthritis, unspecified site; I25.10 Atherosclerotic heart disease of native coronary artery without angina pectoris; E87.6 Hypokalemia; D64.81 Anemia due to antineoplastic chemotherapy; T45.1X5A Adverse effect of antineoplastic and immunosuppressive drugs, initial encounter; Z20.822 Contact with and (suspected) exposure to COVID-19; J70.2 Acute drug-induced interstitial lung disorders; Z95.5 Presence of coronary angioplasty implant and graft; Z90.49 Acquired absence of other specified parts of digestive tract; Z87.891 Personal history of nicotine dependence; Z86.73 Personal history of transient ischemic attack (TIA), and cerebral infarction without residual deficits
CPT/HCPCS: 36415; 36600; 71045; 71046; 71250; 74176; 76705; 80048; 80053; 80076; 81001; 82375; 82550; 82607; 82728; 82746; 82805; 82948; 83010; 83050; 83540; 83550; 83605; 83615; 83690; 83735; 83880; 84100; 84145; 84484; 85014; 85018; 85025; 85027; 85046; 85610; 85652; 85730; 86140; 87040; 87077; 87086; 87186; 93005; 93306; 93970; 94640; 96361; 96365; 96367; 96375; 97110; 97116; 97161; 99285; A9270; C9113; C9803; J0456; J0696; J1642; J1644; J1815; J1940; J2270; J2405; J2543; J2930; J3475; J7120; U0003; U0005

== ENCOUNTER 2022-02-08 11:45 | Emergency (ER) | payer MEDICARE, SELFPAY ==
[2022-02-08 11:54] VITALS: BP 141/96; PULSE 114; RESP 24; TEMP 37; O2SAT 98
--- NOTE | 2022-02-08 13:07 | ED.BACK ---
HPI - Back Pain/Injury General Chief Complaint: Back Pain/Injury Stated Complaint: back injury Time Seen by Provider: 02/08/22 12:43 Source: patient Mode of arrival: ambulatory Limitations: no limitations History of Present Illness HPI Narrative: Patient presents today complaining of pain to the bilateral low back after he fell onto his buttocks 2 days ago after having a syncopal episode at home. States he did not hit his head at that time. Pain in his back is worse with movement. Denies radiation of the pain. 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 Denies loss of bowel or bladder control. He currently rates pain 04/03. He has been taking leftover diclofenac of his 's for the past couple of days, which has been helping his back pain immensely. Patient is unconcerned that he had a syncopal episode at home and did not go get checked out in the ER after this. He is believing that it is likely due to low blood pressure. Related Data Home Medications Medication Instructions Recorded Confirmed tamsulosin 0.4 mg capsule 0.4 mg PO DAILY 06/20/20 02/08/22 cholecalciferol (vitamin D3) 25 25 mcg PO DAILY 06/23/21 02/08/22 mcg (1,000 unit) capsule glucagon 1 mg/0.2 mL subcutaneous 1 mg subcut ONCE PRN Hypoglycemia 06/23/21 02/08/22 auto-injector (Gvoke HypoPen 2-Pack) azelastine 137 mcg (0.1 %) nasal 1 spray intranasal Q12H 06/24/21 02/08/22 spray aerosol aspirin 81 mg tablet,delayed 81 mg PO DAILY 01/07/22 02/08/22 release (Adult Aspirin Regimen) carbidopa 25 mg-levodopa 100 mg 1 tablet PO TID 01/07/22 02/08/22 tablet dapagliflozin 5 mg tablet (Farxiga) 5 mg PO DAILY 01/07/22 02/08/22 insulin degludec 100 unit/mL (3 4 unit subcut QAM 01/07/22 02/08/22 mL) subcutaneous pen (Tresiba FlexTouch U-100 insulin) Allergies Allergy/AdvReac Type Severity Reaction Status Date / Time No Known Allergies Allergy Verified 02/08/22 11:57 Review of Systems Review of Systems: CONSTITUTIONAL: Denies body aches, fever, chills, or sweats. EYES: Denies visual changes, redness, or discharge. ENT: Denies rhinorrhea, congestion, sore throat, or otalgia. CARDIOVASCULAR: Denies chest pain, palpitations, or edema. RESPIRATORY: Denies cough or dyspnea. GASTROINTESTINAL: Denies abdominal pain, nausea, vomiting, or diarrhea. GENITOURINARY: Denies dysuria or hematuria. SKIN: Denies rash, itching, or wounds. MUSCULOSKELETAL: Denies joint pain, or myalgia.+ back pain NEUROLOGIC: Denies headache, numbness, tingling, or weakness. PSYCH: Denies depression or anxiety. [facility] Past Medical History Medical History Arthritis CAD (coronary artery disease) 2010: Left anterior descending stent COPD (chronic obstructive pulmonary disease) Diastolic dysfunction Erectile dysfunction Escherichia coli sepsis H/O: CVA (cerebrovascular accident) had stenting of a carotid artery and PFO closure. HLD (hyperlipidemia) HTN (hypertension) Lung nodule LISANDRA on CPAP Osteoarthritis Pancreatic cancer Parkinsons disease Parkinson's or Parkinson's like disease Pelvic fracture Presence of internal carotid stent Rhinitis Surgical History Surgical History H/O heart artery stent 2009 Left anterior descending stent, Dr. Cortes H/O inguinal hernia repair H/O prostatectomy History of appendectomy S/P patent foramen ovale closure 2014, for stroke Family History Family History Father Acute myocardial infarction, Onset Age: 59 Grandparent Cerebrovascular accident Mother Family history of malignant neoplasm of breast in first degree relative, Onset Age: 65 Social History Social History (Reviewed 02/08/22 @ 13:11 by Johana
== END 2022-02-08 13:20 | disposition left against medical advice (07) ==
PROVIDERS: Emergency Provider Nurse Practitioner; PCP Family Medicine Adolescent Medicine
DX: S39.012A Strain of muscle, fascia and tendon of lower back, initial encounter (principal); W19.XXXA Unspecified fall, initial encounter; M19.90 Unspecified osteoarthritis, unspecified site; J44.9 Chronic obstructive pulmonary disease, unspecified; E78.5 Hyperlipidemia, unspecified; I10 Essential (primary) hypertension; G47.33 Obstructive sleep apnea (adult) (pediatric); G20 Parkinson's disease; Z95.5 Presence of coronary angioplasty implant and graft; Z90.79 Acquired absence of other genital organ(s); Z86.73 Personal history of transient ischemic attack (TIA), and cerebral infarction without residual deficits
CPT/HCPCS: 99213; G0463

== ENCOUNTER → 2022-02-12 15:14 | Outpatient (CLI) | payer MEDICARE, SELFPAY ==
--- NOTE | ~2022-02-12 | XR_ITS ---
EXAM: XR lumbar spine 2-3V DATE: 02/12/2022 15:53 HISTORY: bilateral low back pain after a fall 02/05 . COMPARISON: CT 06/26/2021. FINDINGS: Severely decreased mineralization. Lumbar scoliosis. Several right upper abdominal stents are present. Multilevel grade 1 degenerative listheses in the lumbar spine. Severe degenerative disc disease and facet arthropathy at all lumbar levels. Incidental note of moderate anterior wedge deform ity of T12, new since the comparison. IMPRESSION: Acute versus chronic moderate T12 wedge compression fracture, correlate with pain/tendern ess. Severe degenerative changes in the lumbar spine. Severe osteopenia. Reviewed, dictated and finalized at location K. IMPRESSION: Acute versus chronic moderate T12 wedge compression fracture, corre late with pain/tenderness. Severe degenerative changes in the lumbar spine. Sev ere osteopenia.
== END ==
PROVIDERS: PCP Family Medicine Adolescent Medicine; Visit Provider Family Medicine Adolescent Medicine
DX: M48.54XA Collapsed vertebra, not elsewhere classified, thoracic region, initial encounter for fracture (principal); M41.9 Scoliosis, unspecified; M54.50 Low back pain, unspecified
CPT/HCPCS: 72100